=== PATIENT | female | born 1995 | race Two or more races ===

== ENCOUNTER 2021-07-03 14:24 | Emergency (ER) | payer SELFPAY ==
[2021-07-03 14:28] VITALS: BP 119/80; PULSE 83; RESP 18; TEMP 36.3; O2SAT 100
--- NOTE | 2021-07-03 15:31 | PC.NURSE ---
Pt to the intake desk and states she doesn't want to wait any longer and will try again tomorrow
== END 2021-07-04 05:13 | disposition left against medical advice (07) ==
LOC: ANHED 15:59
DX: G35 Multiple sclerosis (principal)
CPT/HCPCS: 99199

== ENCOUNTER 2021-07-04 09:51 | Emergency (ER) | payer SELFPAY ==
[2021-07-04 09:54] VITALS: BP 105/70; PULSE 87; RESP 16; TEMP 37.1; O2SAT 100
== END 2021-07-05 00:17 | disposition left against medical advice (07) ==
DX: Z53.21 Procedure and treatment not carried out due to patient leaving prior to being seen by health care provider (principal)
CPT/HCPCS: 99199

== ENCOUNTER 2023-05-12 12:41 | Emergency (ER) | payer OTHER, SELFPAY ==
--- NOTE | ~2023-05-12 | XR_ITS ---
EXAMINATION: XR humerus RT INDICATION: Right arm pain TECHNIQUE: Two views of the right humerus are obtained. COMPARISON: None available FINDINGS: No fracture, dislocation, or subluxation. The bones, soft tissues, and joint spaces are nor mal. IMPRESSION: 1. No acute osseous abnormality. Reviewed, dictated and finalized at location F.
--- NOTE | 2023-05-12 12:52 | ED.UPPEXIN ---
HPI - Extremity Injury (Upper) General Chief Complaint: Extremity Injury, Upper Stated Complaint: R SHOULDER PAIN Source: patient and RN notes reviewed History of Present Illness HPI narrative: 27 yo F with hx of MS, presents to urgent care with complaints of right mid humerus pain. Pt states she was cleaning out her garage today and her pain started. Pt denies any known injury today but states she is unable to move her right arm due to pain. Denies any numbness, tingling, fevers, or chills. Pt has not taken anything for pain today. Related Data Home Medications Medication Instructions Recorded Confirmed duloxetine 30 mg capsule,delayed 30 mg PO DIRECTED 05/12/23 05/12/23 release rizatriptan 10 mg tablet 10 mg PO DIRECTED 05/12/23 05/12/23 Allergies Allergy/AdvReac Type Severity Reaction Status Date / Time mint Allergy Other Verified 05/12/23 13:33 NKDA Allergy Other Uncoded 05/12/23 13:34 Review of Systems Review of Systems: CONSTITUTIONAL: Denies fever, chills, or sweats. EYES: Denies visual changes, redness, or discharge. ENT: Denies otalgia and sore throat CARDIOVASCULAR: Denies chest pain, palpitations, or edema. RESPIRATORY: Denies cough or dyspnea. GASTROINTESTINAL: Denies abdominal pain, nausea, vomiting, or diarrhea. GENITOURINARY: Denies dysuria or hematuria. SKIN: Denies rash or itching. MUSCULOSKELETAL: right upper arm pain NEUROLOGIC: Denies headache, numbness, or weakness. Pertinent positives per HPI. PMFSH Comments At the time of my signature, I reviewed and agree with the nursing past medical, surgical, social, and family history. There is no relevant family history pertinent to the patient complaint. Exam Narrative: GENERAL: This is a well-nourished, well-developed patient, in no apparent distress. HEAD: normocephalic, atraumatic. EYES: Sclera clear/white. Vision is grossly intact. EARS: External ears normal, auditory canals clear and without drainage. Hearing grossly intact. NOSE: External nose normal with no obvious nasal discharge, nares without redness, no rhinorrhea. THROAT: Mucous membranes moist, posterior pharynx clear. NECK: Neck supple, non-tender without lymphadenopathy, masses or thyromegaly. CARDIOVASCULAR: Regular rate RESPIRATORY: No respiratory distress SKIN: warm, intact with no suspicious lesions or rash, good texture and turgor. NEURO: awake, alert, and oriented to person, place and time. There were no obvious focal neurologic abnormalities. EXTREMITIES: No pinpont tenderness. Pt unable to abduct her right arm in any direction due to pain. BACK: Nontender without deformity or crepitus. No flank tenderness. Course Course Level of Care: Express Care Visit Vital Signs Vital signs: Vital Signs Temperature 98.2 F 05/12/23 12:55 Pulse Rate 76 05/12/23 12:55 Respiratory Rate 16 05/12/23 12:55 Blood Pressure 105/71 05/12/23 12:55 Pulse Oximetry 100 05/12/23 12:55 Temperature 98.2 F 05/12/23 12:55 Pulse Rate 76 05/12/23 12:55 Respiratory Rate 16 05/12/23 12:55 Blood Pressure 105/71 05/12/23 12:55 Pulse Oximetry 100 05/12/23 12:55 reviewed MDM - Extremity Injury (Upper) MDM Narrative Medical decision making narrative: Use the RICE method at home. May take ibuprofen and/or Tylenol if needed. If symptoms persist in 1 week after conservative treatment, follow-up with specialist. Differential Diagnosis Differential diagnosis: Likely other (humerus fx, arm strain, shoulder sprain) Imaging Data Radiologist's impression: [facility] [address] [place] [address] XRay Report Signed Patient: Kendra Vivas I : 1995 MR#: [id number] Age/Sex: 27 / F Acct:[id number] Loc: [facility]? ? ADM Date: 05/12/23Attending Dr: Ordering Physician: Mariam Rodriguez APRN Date of Service: 05/12/23 Procedure(s): XR humerus RT Accession Number(s): I
[2023-05-12 12:55] VITALS: BP 105/71; PULSE 76; RESP 16; TEMP 36.8; O2SAT 100
== END 2023-05-12 13:38 | disposition home or self-care (01) ==
PROVIDERS: Emergency Provider Nurse Practitioner Family
DX: S46.911A Strain of unspecified muscle, fascia and tendon at shoulder and upper arm level, right arm, initial encounter (principal); X58.XXXA Exposure to other specified factors, initial encounter
CPT/HCPCS: 73060; 99213; A4565; G0463

== ENCOUNTER 2023-06-03 10:59 | Emergency (ER) | payer OTHER, SELFPAY ==
[2023-06-03 11:24] VITALS: BP 109/77; PULSE 96; RESP 16; TEMP 37.1; O2SAT 100
--- NOTE | 2023-06-03 11:35 | ED.URI ---
HPI - URI/Sore Throat General Chief Complaint: Upper Respiratory Infection Stated Complaint: Sinus Infection Time Seen by Provider: 06/03/23 11:35 Source: patient, RN notes reviewed and old records reviewed Mode of arrival: ambulatory Limitations: no limitations History of Present Illness HPI Narrative: 27-year-old female presents to [facility] with complaints of sinus congestion, sinus tenderness, runny nose, and headache that started Sunday. Patient states he has been taking [id number] medications with little to no relief. Patient states has is taking 3 COVID test in last 5 days that were negative. Related Data Home Medications Medication Instructions Recorded Confirmed duloxetine 30 mg capsule,delayed 30 mg PO DIRECTED 05/12/23 06/03/23 release rizatriptan 10 mg tablet 10 mg PO DIRECTED 05/12/23 06/03/23 Allergies Allergy/AdvReac Type Severity Reaction Status Date / Time mint Allergy Other Verified 05/12/23 13:33 Review of Systems Constitutional: Constitutional: Reports no additional constitutional complaints, Denies body ache(s), Denies chills, Denies fatigue, Denies fever(s) and Denies malaise Eyes: Eyes: Reports no additional eye complaints ENT: Reports as per HPI, Reports facial pain, Reports headache(s), Reports nasal congestion, Reports nasal discharge, Reports post nasal drip and Reports sinus pressure Cardiovascular: Cardiovascular: Reports no additional cardiovascular complaints Respiratory: Respiratory: Reports no additional respiratory complaints, Denies chest congestion and Denies cough Neurologic: Reports system reviewed and no additional complaints, except as documented PMFSH Comments At the time of my signature, I reviewed and agree with the nursing past medical, surgical, social, and family history. There is no relevant family history pertinent to the patient complaint. Exam Const: General: cooperative, healthy appearing, no acute distress and well nourished Nutritional Appearance: well nourished Orientation/consciousness: patient oriented x3 Limitations: no limitations HENMT: Head: normal to inspection and normocephalic Ears: external ears normal, TM's normal bilaterally, mastoids normal and Abnormal EAC present Face/Nose/Sinus: Normal external nose present and normal facial exam Face and sinus: normal facial exam and sinuses nontender Mouth: Yes Normal oral and palatal mucosa present, Yes oropharynx normal and Yes moist mucous membranes Throat: posterior oropharynx normal, tonsils normal, uvula midline and no uvular edema Eyes: General: appearance normal, both eyes and all related structures Sclera: sclerae normal Pupils: Equal, round and reactive pupils present Resp: Effort & Inspection: normal respiratory effort, able to speak in complete sentences, no audible wheezes, no cough, no respiratory distress and no retractions Auscultation: clear to auscultation bilaterally, no crackles, no rales, no rhonchi and no wheezes Cardio: Rate: regular rate Rhythm: regular rhythm Skin: General skin exam: normal color and no rashes or lesions noted Neuro: General: patient oriented x3 Cranial nerves: Yes Equal, round and reactive pupils present Psych: Appearance: grossly normal Course Course Emergency Course: Some parts of this dictation were generated by voice recognition software and may contain typographical and/or grammatical inaccuracies. Level of Care: Express Care Visit Vital Signs Vital signs: Vital Signs Temperature 98.8 F 06/03/23 11:24 Pulse Rate 96 06/03/23 11:24 Respiratory Rate 16 06/03/23 11:24 Blood Pressure 109/77 06/03/23 11:24 Pulse Oximetry 100 06/03/23 11:24 Temperature 98.8 F 06/03/23 11:24 Pulse Rate 96 06/03/23 11:24 Respiratory Rate 16 06/03/23 11:24 Blood Pressure 109/77 06/03/23 11:24 Pulse Oximetry 100 06/03/23 11:24 Reviewed MDM - URI/Sore Throat MDM Narrative Medical decision making narra
== END 2023-06-03 11:58 | disposition home or self-care (01) ==
PROVIDERS: Emergency Provider Registered Nurse
DX: J01.00 Acute maxillary sinusitis, unspecified (principal)
CPT/HCPCS: 99211; G0463

== ENCOUNTER 2023-08-23 20:07 | Emergency (ER) | payer OTHER, SELFPAY ==
--- NOTE | ~2023-08-23 | US_ITS ---
EXAMINATION: US pelvic complete w TV DATE: 08/23/2023 23:04 INDICATION: Right lower abdominal pain and vaginal bleeding. TECHNIQUE: Multiple transabdominal and endovaginal sonographic images of the pelvis were obtained. COMPARISON: None. FINDINGS: The uterus measures 7.2 x 4.5 x 5.5 cm. The endometrial complex measures 6-7 mm in thickness. There is a T-shaped linear echogenic and shadowing IUD in expected position within the endometrial canal. T he right ovary measures 4.0 x 2.5 x 3.0 cm. The left ovary measures 3.9 x 2.2 x 3.5 cm. There is norm al vascular flow in the ovaries. There is no free fluid in the pelvis. IMPRESSION: 1. Normal pelvic ultrasound with IUD in expected position within the endometrial canal. Reviewed, dictated and finalized at location A. ANESTHESIA NURSE IMPRESSION: 1. Normal pelvic ultrasound with IUD in expected position within the endometria l canal.
[2023-08-23 20:09] VITALS: BP 117/68; PULSE 81; RESP 16; TEMP 36.6; O2SAT 100
[2023-08-23 22:33] LABS: Basophils Percent Auto 0.5 % (0.2-1.2); Eosinophils Absolute Auto 0.1 K/mm3 (0-0.3); Eosinophils Percent Auto 0.8 % (0-4.4); Hematocrit 35.1 % (37.0-47.0); Hemoglobin 12.2 g/dL (12.0-15.0); Immature Granulocyte Absolute 0.02 K/mm3 (0.00-0.031); Immature Granulocyte Percent A 0.2 % (0-0.5); Lymphocytes Absolute Auto 2.65 K/mm3 (0.9-3.2); Mean Corpuscular HGB Conc 34.8 g/dl (32-36); Mean Corpuscular Hemoglobin 29.9 pg (26-34); Mean Platelet Volume 10.1 fl (7.4-10.4); Monocytes Absolute Auto 0.6 K/mm3 (0.1-0.6); Monocytes Percent Auto 6.6 % (2.6-8.5); Neutrophils Percent Auto 59.9 % (45.5-73.1); Platelet Count Result 248 k/mm3 (150-375); Red Blood Count 4.08 M/mm3 (4.2-5.4); Red Cell Distribution Width 11.3 % (11.5-14.5); White Blood Count 8.3 K/mm3 (4.5-10.0)
--- NOTE | 2023-08-23 22:34 | ED.GENADULT ---
HPI - General Adult General Chief complaint: Abdominal Pain Stated complaint: abd pain, vaginal bleeding Time Seen by Provider: 08/23/23 21:59 Source: patient Mode of arrival: ambulatory Limitations: no limitations History of Present Illness HPI narrative: This is a 27-year-old female who presents to the ED with chief complaint lower abdominal pain x 3 days. Patient reports heavy vaginal bleeding going through 5 pads today which is very abnormal for her. She reports history of IUD in place x4 years and does not normally have periods. Reports pain is across the lower abdomen and worse whenever she sits up. Reports nausea and a couple episodes of vomiting. Denies fevers, chills, diarrhea, urinary symptoms. Denies vaginal discharge or concern for STD Related Data Home Medications Medication Instructions Recorded Confirmed duloxetine 30 mg capsule,delayed 30 mg PO DIRECTED 05/12/23 06/03/23 release rizatriptan 10 mg tablet 10 mg PO DIRECTED 05/12/23 06/03/23 Allergies Allergy/AdvReac Type Severity Reaction Status Date / Time mint Allergy Other Verified 08/23/23 23:14 Review of Systems Review of Systems: All systems as dictated in HPI Exam Narrative: GENERAL: Well-appearing, well-nourished, and in no acute distress. HEAD: Normocephalic, atraumatic. EYES: PERRLA and EOMI. ENT: Nares clear, no rhinorrhea or epistaxis. Mucous membranes moist. Oropharynx without tonsillar hypertrophy exudate or other lesions. NECK: Supple. No adenopathy or masses. CHEST: No respiratory distress. Clear to auscultation. No wheezes rales or rhonchi HEART: Regular rate and rhythm. No murmur heard. Normal peripheral pulses. ABDOMEN: Moderate tenderness to the right lower quadrant. Soft, otherwise nontender, nondistended, normal active bowel sounds. Negative peritoneal signs MSK: Normal range of motion. No edema. SKIN: Warm, dry, no rash. NEURO: Alert and oriented x3. No focal deficits. PSYCH: Normal mood and affect. Course Vital Signs Vital signs: Vital Signs Temperature 97.9 F 08/23/23 20:09 Pulse Rate 81 08/23/23 20:09 Respiratory Rate 16 08/23/23 20:09 Blood Pressure 117/68 08/23/23 20:09 Pulse Oximetry 100 08/23/23 20:09 Oxygen Delivery Room Air 02/15/24 20:09 Temperature 97.9 F 08/23/23 20:09 Pulse Rate 69 08/24/23 00:44 Respiratory Rate 14 08/24/23 00:44 Blood Pressure 99/68 L 08/24/23 00:44 Pulse Oximetry 100 08/24/23 00:44 Oxygen Delivery Room Air 08/23/23 20:09 Medical Decision Making MDM Narrative Medical decision making narrative: This is a 27-year-old female who presents to the ED with chief complaint of lower abdominal pain and vaginal bleeding. IUD placed several years ago and patient has not had a period since then. Vitals are normal. Exam remarkable for the above. Lab work shows normal white blood cells and normal hemoglobin. CMP unremarkable. Urinalysis unremarkable. Ultrasound pelvic: 1. Normal pelvic ultrasound with IUD in expected position within the endometrial canal. . She was given fluids and Toradol here with great improvement. Discussed with patient that this could represent abnormal uterine bleeding with many potential causes. We discussed that she should follow-up closely with gynecology. Referral given today. Toradol prescription given. Pt will be discharged in stable condition. Return precautions given and supportive measures discussed. Pt is understanding and agreeable with plan for discharge and follow-up with PCP. Vital Signs Vital Signs: Vital Signs Temperature 97.9 F 08/23/23 20:09 Pulse Rate 81 08/23/23 20:09 Respiratory Rate 16 08/23/23 20:09 Blood Pressure 117/68 08/23/23 20:09 Pulse Oximetry 100 08/23/23 20:09 Oxygen Delivery Room Air 08/23/23 20:09 Temperature 97.9 F 08/23/23 20:09 Pulse Rate 69 08/24/23 00:44 Respiratory Rate 14 08/24/23 00:44 Blood Pressure 99/68 L
[2023-08-23 22:43] LABS: Partial Thromboplastin Time 26.5 SECONDS (22.3-36.8); Prothrombin Time 14.1 Seconds (11.1-14.7)
[2023-08-23 22:50] LABS: Alanine Aminotransferase 12 U/L (6-35); Albumin Level 3.9 g/dL (3.5-5.1); Alkaline Phosphatase 63 U/L (38-126); Anion Gap 6 mmol/L (8-16); Aspartate Amino Transferase 26 U/L (14-36); Bilirubin,Total 0.6 mg/dL (0.2-1.3); Blood Urea Nitrogen 7 mg/dL (7-17); Carbon Dioxide 25 mmol/L (22-30); Chloride 107 mmol/L (98-107); Estimated CRCL calculation 131 ml/min; Estimated Glomerular Filt Rate > 60; Glucose 103 mg/dL (65-110); Sodium 138 mmol/L (137-145)
--- NOTE | 2023-08-23 22:57 | PC.NURSE ---
Patient states bleeding has resolved.
[2023-08-23] MEDS: SODIUM CHLORIDE 0.9% IV 1,000 ML 999 ML IV CONT (23:15)
[2023-08-23] MEDS: ONDANSETRON INJ 4 MG/2 ML VIAL IV PUSH (23:15)
[2023-08-23] MEDS: KETOROLAC 15 MG/ML VIAL (*BKC) IV PUSH (23:15)
[2023-08-24 00:01] LABS: Appearance Urine Clear (Clear); Bilirubin Urine Negative (Negative); Blood Urine Negative (Negative); Color Urine Yellow (Yellow); Glucose Urine UA Negative (Negative); Ketones Urine Negative (Negative); Leukocyte Esterase Ur Negative LEU/UL (Negative); Nitrate Urine Negative (Negative); Protein Urine Negative (Negative); Specific Grav Ur 1.007 (1.001-1.035); Urobilinogen Urine 0.2 mg/dL (<2.0)
[2023-08-24 00:04] LABS: Add Urine Microscopic? NO
[2023-08-24 00:11] LABS: Pregnancy On Board Control Positive; Urine Pregnancy Test Negative
--- NOTE | 2023-08-24 00:43 | PC.NURSE ---
Pt states she does not want to wait until IV bag is finished.
[2023-08-24 00:44] VITALS: BP 99/68; PULSE 69; RESP 14; O2SAT 100
== END 2023-08-24 00:45 | disposition home or self-care (01) ==
PROVIDERS: Student in an Organized Health Care Education/Training Program; Emergency Provider Physician Assistant
DX: R10.30 Lower abdominal pain, unspecified (principal); N93.9 Abnormal uterine and vaginal bleeding, unspecified; Z97.5 Presence of (intrauterine) contraceptive device
CPT/HCPCS: 36415; 76830; 76856; 80053; 81003; 81025; 83735; 85025; 85610; 85730; 96361; 96374; 96375; 99284; J1885; J2405; J7030

== ENCOUNTER 2023-09-11 08:54 | Outpatient (CLI) | payer OTHER, SELFPAY | END 2023-09-11 08:55 | disposition home or self-care (01) | LOC: ANHSURGERY 08:58 | PROVIDERS: Visit Provider Obstetrics & Gynecology | DX: Z01.818 Encounter for other preprocedural examination (principal) | CPT/HCPCS: 36415; 86850; 86900; 86901 ==

== ENCOUNTER 2023-09-14 01:35 | Day surgery (SDC) | payer OTHER, SELFPAY ==
--- NOTE | 2023-09-07 14:47 | PC.NURSE ---
Report to the Outpatient Waiting Room, entrance under the green pavilion located off [facility], at time _0600__ on date _09/14/23__. Planned Procedure Time: _0730___. Time changes happen often and if your time is changed the preop area will call you the afternoon before. - You and your visitor will be asked to self-screen and do not enter if you have any COVID symptoms. - A mask is optional within the hospital at this time. Patients may have clear liquids (water, carbonated beverages, clear teas, apple juice) until 3 hours prior to surgery with a maximum of 20 ounces. - No food from midnight until time of surgery - Infants may have breast milk until 4 hours before surgery, infant formula 6 hours prior to surgery. - Children will be allowed to drink immediately following surgery. If applicable, please bring a bottle or sippy cup to assist with drinking. Juice, water, soda, and popsicles are readily available. For infants on formula, please bring formula the day of surgery. Pacifiers are allowed. Take the following medications with a SIP of water the morning of surgery: __None__ DO NOT STOP ANY OF YOUR OTHER PRESCRIPTION MEDICATIONS PRIOR TO SURGERY ?EXCEPT THE FOLLOWING Medications to discontinue per physician ____Vitamins or supplements____ Date to take last dose Please no make-up, nail chinese, hairspray, perfume, deodorant, or body powder the day of surgery. No jewelry (including any body piercings) or valuables the day of surgery, leave them at home. Please take a shower or bath the night before, or the morning of, surgery with an antibacterial soap. Wear comfortable, loose fitting clothing. Children are encouraged to wear pajamas. - Jewelry must be removed prior to entering the operating room. Rings and piercings that are not removed may be cut off. - The hospital will not accept responsibility for valuables. - Please leave all valuables, including medications, at home the day of surgery. If you are going home after surgery, a licensed pick up truck driver must drive you home. - NO public transportation without another adult if you receive anesthesia. - We recommend that an adult stay with you for 24 hours following discharge. - We also recommend that you do not drive, make important decision, drink alcoholic beverages, or take any drugs that were not prescribed by your health care provider for at least 24 hours after your discharge time. For Pediatric surgeries, we recommend two adults accompany the child home. Follow any additional instructions given to you from your surgeon. If you or anyone in your household have experienced Covid symptoms in the past week, please notify your surgeon or the nurse liaison at the phone number below for possible testing. Telephone instructions given to _Patient__and asked if any additional questions and then verbalized understanding. Patient advised to call surgeon office or pre surgery nurse liaison [phone] if any additional questions.
[2023-09-07 14:54] VITALS: BMI 23.5
--- NOTE | 2023-09-13 06:38 | PM.IMHP ---
H&P: HPI History of Present Illness Date/Time: 09/13/23 06:38 Chief Complaint: pelvic pain Narrative: 28-year-old female admitted for laparoscopy secondary to pelvic pain. Was seen in the ER severe dyspareunia dysmenorrhea. IUD is she has strong history cancers. Cyst imaging was negative. Risks and benefits of laparoscopy reviewed including exclusive , aspiration wound, bleeding, transfusion, perforation injury to bowel, bladder, ureter, or other internal organs with need for laparotomy. She received the [employer] handout entitled laparoscopy. Had all questions answered. She asked to proceed [facility] Social History Social History Smoking status: Never smoker Alcohol intake: current Drinks per week: 1 Alcohol use details: 1 drink every two weeks Substance use: current Substance use type: opiates Other substance usage details: Pt stated after surgery when she was 17 Last use: 10 years Living arrangements: with family Spiritual care concerns: No Meds Home Medications and Allergies Home Medications Medication Instructions Recorded Confirmed Type duloxetine 30 mg capsule,delayed 30 mg PO DIRECTED 05/12/23 09/07/23 History release rizatriptan 10 mg tablet 10 mg PO DIRECTED 05/12/23 09/07/23 History Allergies Allergy/AdvReac Type Severity Reaction Status Date / Time mint Allergy Severe Difficulty Verified 09/07/23 14:28 Breathing Ringer's solution,lactated Allergy Severe Difficulty Verified 09/07/23 15:01 Breathing Exam Const: General: cooperative, healthy appearing and comfortable Nutritional Appearance: average body habitus Orientation/consciousness: oriented to person, oriented to place and oriented to time HENMT: Head: normal to inspection Resp: Effort & Inspection: normal respiratory effort Cardio: Rate: regular rate Rhythm: regular rhythm Heart sounds: S1 normal heart sound present and S2 normal heart sound present GI: Inspection: normal to inspection : External Female Exam: normal external appearance Speculum Exam - Vagina: normal appearance of the vagina Speculum Exam - Cervix: normal appearance of the cervix Bimanual exam- vagina & uterus: uterine size normal and Uterine tenderness Bimanual Exam- Adnexa, other: tender bilaterally Assessment and Plan Assessment and plan (1) Pelvic pain: Code(s): R10.2 - Pelvic and perineal pain Status: Acute Plan diagnostic laparoscopy
--- NOTE | 2023-09-13 12:31 | P.PNAN_ITS ---
Anes - Initial Pre Proc Eval Procedure: Operation Date: 09/14/23 07:30 Proposed Procedures p Diagnostic Laparoscopy - Vincent Akins MD Date/Time: 09/13/23 12:31 Surgeon: Vincent Akins MD Pre Op Diagnosis: pelvic pain, irregular excessive bleeding, Patient Data Age: 28 Gender: F Height: 1.7 m Weight: 68.18 kg Allergies Allergy/AdvReac Type Severity Reaction Status Date / Time mint Allergy Severe Difficulty Verified 09/07/23 14:28 Breathing Ringer's solution,lactated Allergy Severe Difficulty Verified 09/07/23 15:01 Breathing Home Medications Medication Instructions Recorded Confirmed Type duloxetine 30 mg capsule,delayed 30 mg PO DIRECTED 05/12/23 09/07/23 History release rizatriptan 10 mg tablet 10 mg PO DIRECTED 05/12/23 09/07/23 History hydrocodone 5 mg-acetaminophen 325 1 tablet PO Q4H PRN pain #20 tabs 09/14/23 Rx mg tablet Patient hx anesthesia problems: none Family hx anesthesia problems: none Results Review: All pre-operative results and documents have been reviewed as part of the pre- operative evaluation. [facility] Past Medical History Medical History (Updated 09/13/23 @ 12:31 by Hoang Olsen DO) ADHD Multiple sclerosis Social History Social History Smoking status: Never smoker Alcohol intake: current Drinks per week: 1 Alcohol use details: 1 drink every two weeks Substance use: current Substance use type: opiates Other substance usage details: Pt stated after surgery when she was 17 Last use: 10 years Living arrangements: with family Spiritual care concerns: No Anes - Eval Final PreProcedure Day of Procedure 09/13/23 12:31 Patient weight: normal Heart: regular rate and rhythm Lungs: clear to auscultation Airway: Mallampati scale class II Neurological: alert and oriented Last oral intake: >/= 8 hours ASA classification: II Emergent: no Anesthetic plan: proceed Anesthesia type and monitoring: general ETT and standard monitoring Results Review: All pre-operative results and documents have been reviewed as part of the pre- operative evaluation. Informed Consent: The patient's anesthetic plan and its attendant risks and benefits were discussed with the patient/family/POA. Questions were solicited and answers provided to the satisfaction of the patient/family/POA.
[2023-09-14] VITALS (16 sets, daily range): BP systolic 89–120; BP diastolic 51–81; PULSE 57–90; RESP 12–16; TEMP 35.8–36.4; O2SAT 96–100
--- NOTE | 2023-09-14 05:47 | WPDHPUPDATE1 ---
History and Physical Update Update Date/Time: 09/14/23 05:47 History and Physical has been reviewed, including an updated exam of the patient. There are NO changes in the patient's condition. Risks, benefits, and alternatives have been discussed and questions answered. Patient agrees to proceed with procedure.
[2023-09-14] MEDS: SODIUM CHLORIDE 0.9% IV 1,000 ML 30 ML IV CONT ×2 (07:15→09:28)
[2023-09-14] MEDS: KETOROLAC 15 MG/ML VIAL (*BKC) IV PUSH ×2 (07:15→09:52)
--- NOTE | 2023-09-14 07:59 | P.OP_ITS ---
Procedure Note - Detailed Date of Procedure 09/14/23 Pre-op Diagnosis pelvic pain, irregular excessive bleeding, Post-op Diagnosis Other (Pelvic pain/ endometriosis) Procedure Performed laparoscopy with destruction of endometriosis Surgeon Vincent Akins MD Anesthesia General Indications 27-year-old female with pelvic pain suspected endometriosis Findings endometriosis in the cul-de-sac. Normal-appearing ovaries with a small area of endometriosis on the left ovary. Normal-appearing tubes uterus. Normal- appearing appendix and gallbladder and liver edge Description of Procedure patient was prepped draped sterile fashion placed the dorsal lithotomy position. A general trach anesthesia weighted speculum placed posterior fornix vagina. Anterior lip of the cervix grasped with single-tooth tenaculum. The David's cannula inserted the single-tooth to be used later for uterine manipulation. After emptying the bladder clear urine, the weighted speculum was removed the gloves were changed. Infraumbilical incision made the Veress needle passed in the abdomen. Abdomen filled with CO2 gas [id number]. The 5mm trocar advanced under direct visualization assuring no injury. Patient placed in Trendelenburg and a suprapubic incision made. The 5mm trocar advanced under direct visualization assuring no injury. The above findings were seen in photo documentation the areas of endometriosis along the right left uterosacral ligament cul-de-sac were all cauterized at 35 w per 2nd with excellent desiccation. Irrigation undertaken until clear. There was small area the left ovary of endometriosis and this was cauterized as well. Irrigation was then taken the clear the lower sites removed. The gas removed from the abdomen. The upper site removed. The incisions closed with 4 Monocryl and glue. Instruments removed from the vagina the patient went recovery in satisfactory condition. All sponge, needle, instrument counts were correct. There were no complications Estimated Blood Loss 5 Drains No Packing No Pathology None sent Condition Stable Disposition PACU
[2023-09-14] MEDS: fentaNYL CITRATE INJ (*CRX) 100 MCG/2 ML VIAL 25 MCG IV PUSH ×6 (09:11→09:30)
[2023-09-14] MEDS: HYDROmorphone HCL INJ (*CRX) 1 MG/ML SYR 0.5 MG IV PUSH ×2 (09:35→09:40)
[2023-09-14] MEDS: ONDANSETRON INJ 4 MG/2 ML VIAL IV PUSH (09:46)
[2023-09-14] MEDS: MIDAZOLAM HCL (*CRX) 2 MG/2 ML VIAL 1 MG IV PUSH (09:55)
[2023-09-14] MEDS: oxyCODONE HCL (*CRX) 5 MG TAB IR PO (11:33)
== END 2023-09-14 12:49 | disposition home or self-care (01) ==
PROVIDERS: Visit Provider Obstetrics & Gynecology
PROC: (CPT 49320; principal; 2023-09-14 07:30)
DX: N80.00 Endometriosis of the uterus, unspecified (principal); R10.2 Pelvic and perineal pain; N94.6 Dysmenorrhea, unspecified; N94.10 Unspecified dyspareunia
CPT/HCPCS: 58662; 36415; 86850; 86900; 86901; A9270; J1170; J1200; J1885; J2250; J2405; J2704; J3010; J7030; J7040

== ENCOUNTER 2023-09-18 09:01 | Emergency (ER) | payer OTHER, SELFPAY ==
--- NOTE | ~2023-09-18 | CT_ITS ---
EXAMINATION: CT abdomen pelvis w con DATE: 09/18/2023 10:37 INDICATION: Right upper quadrant abdominal and epigastric pain. Nausea. TECHNIQUE: Computed tomography (CT) of the abdomen and pelvis was performed with 100 mL Omnipaque-350 intravenous contrast. Automated exposure control and iterative reconstruction technique were employe d. The dose-length product was 414.09 mGy-cm. COMPARISON: None FINDINGS: Lung bases are clear. Heart size is normal. No pericardial or pleural effusion. Liver, gallbladder, s pleen, pancreas, bilateral adrenal glands and kidneys are normal. The bowels appear normal with no ob struction or abnormal bowel wall thickening. The appendix is not visualized. No pericecal inflammator y change to suggest acute appendicitis. Bladder is normal. T-shaped IUD in expected position within t he normal anteverted uterus. 2.0 cm left ovarian cyst/follicle. Right ovary is unremarkable. Minimal free fluid in the cul-de-sac which could be either physiologic or related to reported recent laparosc opic surgery. Also likely related to recent surgery is small amount of gas in the subcutaneous tissue s of the anterior pelvic wall and small amount of intraperitoneal gas scattered throughout the abdome n. No abscess. No pathologically enlarged abdominal or pelvic lymphadenopathy. Bones are unremarkable . IMPRESSION: 1. Small amount of free intraperitoneal gas likely related to recent laparoscopic surgery. No other a cute intra-abdominal/pelvic process. 2. IUD in expected position within the anteverted uterus. Reviewed, dictated and finalized at location L. IMPRESSION: 1. Small amount of free intraperitoneal gas likely related to recent laparoscop ic surgery. No other acute intra-abdominal/pelvic process. 2. IUD in expected position within the anteverted uterus.
--- NOTE | 2023-09-18 09:18 | ED.ABDPAIN ---
HPI - Abdominal Pain General Chief Complaint: Abdominal Pain Stated Complaint: endometriosis surgery sunday having pain Time Seen by Provider: 09/18/23 09:03 Source: patient and old records reviewed Mode of arrival: ambulatory Limitations: no limitations History of Present Illness HPI narrative: Patient is a 28-year-old female who presents the ED with report of right upper quadrant and epigastric abdominal pain. Patient reports she underwent laparoscopic surgery/endometrial ablation under Dr. Cinthya Akins on Sunday. She began having pain in her right upper abdomen after the surgery, which has progressively worsened since then. Pain radiates to her right clavicular region/right upper back. She reports decreased appetite, nausea. Denies vomiting, diarrhea, constipation. Last bowel movement today and was normal. Denies rectal bleeding or melena. Denies fevers. Denies urinary complaints. Patient has not tried anything for the pain. Denies previous issues with her pancreas or gallbladder. Related Data Home Medications Medication Instructions Recorded Confirmed duloxetine 30 mg capsule,delayed 30 mg PO DIRECTED 05/12/23 09/07/23 release rizatriptan 10 mg tablet 10 mg PO DIRECTED 05/12/23 09/07/23 Allergies Allergy/AdvReac Type Severity Reaction Status Date / Time mint Allergy Severe Difficulty Verified 09/14/23 07:52 Breathing Ringer's solution,lactated Allergy Severe Difficulty Verified 09/14/23 07:52 Breathing Review of Systems Review of Systems: CONSTITUTIONAL: Denies fever, chills, or sweats. GASTROINTESTINAL: See HPI. GENITOURINARY: Denies dysuria or hematuria. MUSCULOSKELETAL: See HPI. NEUROLOGIC: Denies headache, dizziness, numbness, or weakness. All systems reviewed & are unremarkable except as noted in HPI and below PMFSH Past Medical History Medical History (Updated 09/18/23 @ 11:23 by Gilda Newton PA-C) ADHD Endometriosis Multiple sclerosis Surgical History Surgical History (Updated 09/18/23 @ 11:23 by Gilda Newton PA-C) History of endometrial ablation Social History Social History Smoking status: Never smoker Alcohol intake: current Drinks per week: 1 Alcohol use details: 1 drink every two weeks Substance use: current Substance use type: opiates Other substance usage details: Pt stated after surgery when she was 17 Last use: 10 years Living arrangements: with family Spiritual care concerns: No Exam Narrative: GENERAL: Well appearing, well-nourished, non-toxic, in no acute distress. HEAD: Normocephalic, atraumatic. RESPIRATORY: Airway patent, respirations nonlabored. Clear to auscultation bilaterally, no rales, rhonchi, wheezing. CARDIOVASCULAR: Regular rate and rhythm ABDOMINAL: Soft, diffuse tenderness throughout abdomen, worst in epigastric and right upper quadrant. Normoactive BS. MUSCULOSKELETAL: Moves all extremities. No gross deformities. SKIN: Warm, dry, normal color. Small incisions to umbilical region and suprapubic region are clean dry and intact, glue in place, no evidence of dehiscence, no drainage or bleeding, minimal surrounding ecchymosis. NEURO: A&O X3. Speech clear. PSYCHIATRIC: Mildly anxious and tearful. Normal interaction. Course Vital Signs Vital signs: Vital Signs Pulse Rate 80 09/18/23 10:05 Respiratory Rate 12 09/18/23 10:05 Blood Pressure 105/71 09/18/23 10:05 Pulse Oximetry 100 09/18/23 10:05 Pulse Rate 65 09/18/23 11:31 Respiratory Rate 16 09/18/23 11:31 Blood Pressure 106/84 09/18/23 11:31 Pulse Oximetry 98 09/18/23 11:31 MDM - Abdominal Pain MDM Narrative Medical decision making narrative: Patient presented to ED with several day history of right upper quadrant/epigastric abdominal pain, recent endometrial ablation on Sunday. Vital signs are stable upon arrival. Afebrile. Patient mild
[2023-09-18 09:43] LABS: Basophils Percent Auto 0.4 % (0.2-1.2); Eosinophils Absolute Auto 0.1 K/mm3 (0-0.3); Eosinophils Percent Auto 0.8 % (0-4.4); Hematocrit 42.5 % (37.0-47.0); Hemoglobin 14.7 g/dL (12.0-15.0); Immature Granulocyte Absolute 0.02 K/mm3 (0.00-0.031); Immature Granulocyte Percent A 0.3 % (0-0.5); Lymphocytes Absolute Auto 1.99 K/mm3 (0.9-3.2); Mean Corpuscular HGB Conc 34.6 g/dl (32-36); Mean Corpuscular Hemoglobin 30.1 pg (26-34); Mean Corpuscular Volume 86.9 fl (80-100); Mean Platelet Volume 10.2 fl (7.4-10.4); Monocytes Absolute Auto 0.4 K/mm3 (0.1-0.6); Neutrophils Absolute Auto 4.8 K/mm3 (1.3-6.7); Neutrophils Percent Auto 65.5 % (45.5-73.1); Platelet Count Result 255 k/mm3 (150-375); Red Blood Count 4.89 M/mm3 (4.2-5.4); Red Cell Distribution Width 11.6 % (11.5-14.5); White Blood Count 7.4 K/mm3 (4.5-10.0)
[2023-09-18 09:54] LABS: Appearance Urine Cloudy (Clear); Bacteria Urine Rare /hpf; Bilirubin Urine Negative (Negative); Blood Urine Negative (Negative); Color Urine Yellow (Yellow); Glucose Urine UA Negative (Negative); Ketones Urine Negative (Negative); Leukocyte Esterase Ur 1+ LEU/UL (Negative); Nitrate Urine Negative (Negative); Non Pathogenic Casts 0-2; Protein Urine Negative (Negative); RBC Urine 0-2 /hpf (0-2); Specific Grav Ur 1.012 (1.001-1.035); Squamous Epithelial Cell Urine Moderate /hpf (Few); Urobilinogen Urine 0.2 mg/dL (<2.0)
[2023-09-18 10:03] LABS: Alanine Aminotransferase 16 U/L (6-35); Albumin Level 4.6 g/dL (3.5-5.1); Alkaline Phosphatase 86 U/L (38-126); Anion Gap 7 mmol/L (8-16); Aspartate Amino Transferase 28 U/L (14-36); Bilirubin,Total 0.7 mg/dL (0.2-1.3); Blood Urea Nitrogen 7 mg/dL (7-17); Calcium 9.6 mg/dL (8.4-10.2); Carbon Dioxide 27 mmol/L (22-30); Chloride 105 mmol/L (98-107); Estimated Glomerular Filt Rate > 60; Glucose 89 mg/dL (65-110); Lipase 128 U/L (23-300); Potassium 3.8 mmol/L (3.4-5.0); Sodium 139 mmol/L (137-145)
[2023-09-18 10:04] LABS: Add Urine Microscopic? YES
[2023-09-18 10:05] VITALS: BP 105/71; PULSE 80; RESP 12; O2SAT 100
[2023-09-18] MEDS: FAMOTIDINE 20 MG/2 ML VIAL IV PUSH (10:10)
[2023-09-18] MEDS: SODIUM CHLORIDE 0.9% IV 1,000 ML 999 ML IV CONT (10:11)
--- NOTE | 2023-09-18 10:26 | PC.NURSE ---
Waiting to give IV pain meds until after CT scan and reassess BP. Provider made aware.
[2023-09-18] MEDS: ONDANSETRON INJ 4 MG/2 ML VIAL IV PUSH (10:51)
[2023-09-18] MEDS: MORPHINE SULFATE (*CRX) 4 MG/ML INJ IV PUSH (10:51)
[2023-09-18 11:31] VITALS: BP 106/84; PULSE 65; RESP 16; O2SAT 98
--- NOTE | 2023-09-27 09:09 | PC.NURSE ---
Late Entry: Normal saline stopped at 11:12
== END 2023-09-18 11:32 | disposition home or self-care (01) ==
PROVIDERS: Emergency Provider Physician Assistant; Referring Provider Emergency Medicine
DX: R10.11 Right upper quadrant pain (principal); R11.0 Nausea; Z98.890 Other specified postprocedural states; G35 Multiple sclerosis; N80.9 Endometriosis, unspecified; F90.9 Attention-deficit hyperactivity disorder, unspecified type
CPT/HCPCS: 36415; 74177; 80053; 81001; 81025; 83690; 85025; 87086; 87088; 96361; 96374; 96375; 99284; J2270; J2405; J7030; Q9967

== ENCOUNTER 2024-02-22 08:14 | Emergency (ER) | payer OTHER, SELFPAY ==
--- NOTE | ~2024-02-22 | XR_ITS ---
EXAMINATION: XR chest 2V 02/22/2024 09:05 INDICATION: Cough for 5 days PROCEDURE: 2 view chest COMPARISON: No prior studies for comparison. FINDINGS: The lungs are clear. The cardiomediastinal silhouette is within normal limits. There are no pleural effusions. There is no pneumothorax suspected. IMPRESSION: 1: NO ACUTE CARDIOPULMONARY DISEASE. Reviewed, dictated and finalized at location B.
[2024-02-22 08:29] VITALS: BP 102/70; PULSE 86; RESP 16; TEMP 36.8; O2SAT 100
--- NOTE | 2024-02-22 09:18 | ED.URI ---
HPI - URI/Sore Throat General Chief Complaint: Upper Respiratory Infection Stated Complaint: COUGH/SOB/FEVER/BODY ACHES Time Seen by Provider: 02/22/24 08:50 Source: patient and RN notes reviewed Mode of arrival: ambulatory Limitations: no limitations History of Present Illness HPI Narrative: Patient presents today with a 5 day history of nasal congestion and sinus pressure, ear pain, chills, sweats, sore throat. Also states it is difficult to take a deep breath. She has been using DayQuil, Tylenol cold and flu without much relief. No history of asthma or COPD. She is a nonsmoker. History of multiple sclerosis for which she gets Ocrevus infusions. States her child was sick 2 weeks ago with rhino virus. Related Data Home Medications Medication Instructions Recorded Confirmed duloxetine 30 mg capsule,delayed 30 mg PO DIRECTED 05/12/23 09/07/23 release rizatriptan 10 mg tablet 10 mg PO DIRECTED 05/12/23 09/07/23 ocrelizumab 30 mg/mL intravenous mg IV 02/22/24 solution (Ocrevus) Allergies Allergy/AdvReac Type Severity Reaction Status Date / Time mint Allergy Severe Difficulty Verified 09/14/23 07:52 Breathing Ringer's solution,lactated Allergy Severe Difficulty Verified 09/14/23 07:52 Breathing Review of Systems Review of Systems: CONSTITUTIONAL: Denies body aches, fever. + chills, sweats EYES: Denies visual changes, redness, or discharge. ENT:+ ear pressure, congestion, sore throat CARDIOVASCULAR: Denies chest pain, palpitations, or edema. RESPIRATORY: Denies dyspnea.+ cough GASTROINTESTINAL: Denies abdominal pain, nausea, vomiting, or diarrhea. GENITOURINARY: Denies dysuria or hematuria. SKIN: Denies rash, itching, or wounds. MUSCULOSKELETAL: Denies back pain, joint pain, or myalgia. NEUROLOGIC: Denies headache, numbness, tingling, or weakness. PSYCH: Denies depression or anxiety. [facility] Past Medical History Medical History ADHD Endometriosis Multiple sclerosis Surgical History Surgical History History of endometrial ablation Social History Social History Smoking status: Never smoker Alcohol intake: current Drinks per week: 1 Alcohol use details: 1 drink every two weeks Substance use: current Substance use type: opiates Other substance usage details: Pt stated after surgery when she was 17 Last use: 10 years Living arrangements: with family Spiritual care concerns: No Comments At time of signature, I have reviewed and agree with nursing past medical, surgical, social and family history unless otherwise noted. Please see nursing chart for further information. There is no relevant family history pertinent to the presenting complaint Exam Narrative: GENERAL: Mildly ill-appearing, well-nourished, and in no acute distress. HEAD: Normocephalic, atraumatic. EYES: EOMI. No redness or drainage. Conjunctivae normal. ENT: Mucous membranes pink and moist. Nares congested. No rhinorrhea. TMs normal bilaterally. Throat normal. Uvula midline. NECK: Normal AROM. Supple. No lymphadenopathy. CHEST: No respiratory distress. Clear to auscultation. Harsh frequent cough noted. HEART: Regular rate and rhythm. No murmur appreciated. EXTREMITIES: Normal range of motion. No edema. SKIN: Warm, dry, no rash. Capillary refill normal. Normal skin turgor. NEURO: No focal deficits. Alert and oriented x3. Gait steady. PSYCH: Normal affect. No signs of depression or anxiety. Course Course Level of Care: Express Care Visit Vital Signs Vital signs: Vital Signs Temperature 98.2 F 02/22/24 08:29 Pulse Rate 86 02/22/24 08:29 Respiratory Rate 16 02/22/24 08:29 Blood Pressure 102/70 02/22/24 08:29 Pulse Oximetry 100 02/22/24 08:29 Temperature 98.2 F 02/22/24
== END 2024-02-22 09:30 | disposition home or self-care (01) ==
PROVIDERS: Emergency Provider Nurse Practitioner
DX: J06.9 Acute upper respiratory infection, unspecified (principal); J40 Bronchitis, not specified as acute or chronic; N80.9 Endometriosis, unspecified; G35 Multiple sclerosis
CPT/HCPCS: 71046; 99213; G0463

== ENCOUNTER 2024-02-24 08:04 | Emergency (ER) | payer OTHER, SELFPAY ==
--- NOTE | 2024-02-24 08:12 | ED.URI ---
HPI - URI/Sore Throat General Chief Complaint: Upper Respiratory Infection Stated Complaint: Bronchitis Time Seen by Provider: 02/24/24 08:19 Source: patient, RN notes reviewed and old records reviewed Mode of arrival: ambulatory Limitations: no limitations History of Present Illness HPI Narrative: 28 year female who presents to express care with continued feelings of acute cough, sore throat, nasal congestion, coughed so hard she wet herself. Patient was seen on Sunday with a 5 day history of symptoms and was placed on Augmentin, benzonatate, and prednisone daily for 5 days. Patient reports that she has taken cold and flu medication OTC and also some Advil and Tylenol for her discomfort along with her prescribed medication.. Patient reports that she is not feeling any better and is not sleeping due to the cough.Patient tearful,reports no fevers, chest x-ray negative on Sunday. MD elicited complaint: cough, sore throat, rhinorrhea and nasal congestion Pertinent past history: other (Ocrevus for MS) Onset (ago): week(s) (1) Consistency: constant Severity: moderate Description of mucous: clear Able to tolerate fluids by mouth: Yes Treatments prior to arrival: acetaminophen, ibuprofen, cold medicine , antibiotics and other (prednisone, benzonatate) Related Data Home Medications Medication Instructions Recorded Confirmed ocrelizumab 30 mg/mL intravenous 10 mg IV DIRECTED 02/22/24 02/24/24 solution (Ocrevus) Allergies Allergy/AdvReac Type Severity Reaction Status Date / Time mint Allergy Severe Difficulty Verified 02/24/24 08:28 Breathing Ringer's solution,lactated Allergy Severe Difficulty Verified 02/24/24 08:28 Breathing Review of Systems Review of Systems: CONSTITUTIONAL: Reports malaise, chills, sweats, no known fever. EYES: Denies visual changes, redness, or discharge. ENT: Reports rhinorrhea, congestion, sinus pain, no otalgia and positive sore throat. CARDIOVASCULAR: Denies chest pain, palpitations, or edema. RESPIRATORY: Reports cough.? Denies dyspnea. GASTROINTESTINAL: Denies abdominal pain, nausea, vomiting, diarrhea SKIN: Denies rash or itching. MUSCULOSKELETAL: Denies myalgia. NEUROLOGIC: Denies headache. All systems reviewed & are unremarkable except as noted in HPI and below PMFSH Past Medical History Medical History (Updated 02/25/24 @ 00:00 by Background Daemon) ADHD Endometriosis Multiple sclerosis Surgical History Surgical History (Updated 02/25/24 @ 09:21 by Rakel Gates NP) History of endometrial ablation History of hip surgery Social History Social History (Updated 02/25/24 @ 09:21 by Rakel Gates NP) Smoking status: Never smoker Alcohol intake: current Drinks per week: 1 Alcohol use details: 1 drink every two weeks Substance use: former Substance use type: opiates Other substance usage details: Pt stated after surgery when she was 17 Last use: 10 years Living arrangements: with family Gender identity (if verbalized by the patient): Female Spiritual care concerns: No Comments At time of signature, agree with nursing past medical, surgical, social and family history. There is no relevant family history pertinent to the presenting complaint Exam Narrative: GENERAL: Well-appearing, well-nourished, and in no acute distress. HEAD: Normocephalic EYES: PERRLA, conjunctivae clear ENT: Nares clear, turbinates edematous and erythematous, clear discharge. Mucous membranes moist. TM pearly lomeli with dull light reflex bilaterally; no tragal tenderness. Oropharynx erythematous without lesions. Tonsils not enlarged and without exudate, no drooling, no hoarseness, no trismus, uvula midline.post nasal drainage NECK: Supple. No lymphadenopathy CHEST: Clear to auscultation, breath sounds equal. No wheezing, rhonchi, rales, or stridor. No respiratory distress, speaks in full sentences.cough noted SAO2 100% on room air,dry co
[2024-02-24 08:15] VITALS: BP 110/84; PULSE 84; RESP 16; TEMP 36.9; O2SAT 100
== END 2024-02-24 08:38 | disposition home or self-care (01) ==
PROVIDERS: Emergency Provider Registered Nurse
DX: R05.1 Acute cough (principal); R09.81 Nasal congestion; N80.9 Endometriosis, unspecified; G35 Multiple sclerosis
CPT/HCPCS: 99213; G0463

== ENCOUNTER 2024-03-05 09:18 | Emergency (ER) | payer OTHER, SELFPAY ==
[2024-03-05 09:33] VITALS: BP 109/78; PULSE 106; RESP 16; TEMP 36.9; O2SAT 100
--- NOTE | 2024-03-05 09:34 | ED.GENADULT ---
HPI - General Adult General Chief complaint: Skin/Abscess/Foreign Body Stated complaint: LICE CHECK Time Seen by Provider: 03/05/24 09:35 Source: patient, RN notes reviewed and old records reviewed Mode of arrival: ambulatory Limitations: no limitations History of Present Illness HPI narrative: 27 year old female accompanied by spouse presents to express care and reports that they need to have examination for pubic lice for DCFS. Patient reports that their daughter was treated for head last week last week and they noted that daughters eye lashes and eye brows had white crusting so they took child to pit clerk on Sunday. Child was very anxious and pit clerk told them it was public lice and on child's eyelashes and eye brows and ophthalmology was unable to remove and recommended they go to [facility] so child could be sedated and have them removed. Mother reports that they went to [facility] and child was given Ketamine and computer equipment repairer removed lice from eyes and they are to follow up next week with computer equipment repairer at [facility]. MD complaint: here for examination for pubic lice Onset (ago): day(s) (2-3 days) Treatments prior to arrival: none Related Data Home Medications Medication Instructions Recorded Confirmed fexofenadine 60 mg tablet (Brina 60 mg PO DAILY 03/05/24 03/05/24 Allergy) Allergies Allergy/AdvReac Type Severity Reaction Status Date / Time mint Allergy Severe Difficulty Verified 03/05/24 09:27 Breathing Ringer's solution,lactated Allergy Severe Difficulty Verified 03/05/24 09:27 Breathing Review of Systems Review of Systems: CONSTITUTIONAL: Denies fever, chills, or sweats. EYES: Denies visual changes, redness, or discharge. ENT: Denies rhinorrhea, congestion, sore throat, or otalgia. CARDIOVASCULAR: Denies chest pain, palpitations, or edema. RESPIRATORY: Denies cough or dyspnea. GASTROINTESTINAL: Denies abdominal pain, nausea, vomiting, or diarrhea. GENITOURINARY: Denies dysuria or hematuria. SKIN: Denies rash or itching.denies any lice to hair or to eyes or to pubic area MUSCULOSKELETAL: Denies back pain, joint pain, or myalgia. NEUROLOGIC: Denies headache, numbness, or weakness. PSYCHIATRIC: Denies anxiety or depression. All systems reviewed & are unremarkable except as noted in HPI and below PMFSH Past Medical History Medical History ADHD Endometriosis Multiple sclerosis Surgical History Surgical History History of endometrial ablation History of hip surgery Social History Social History Smoking status: Never smoker Alcohol intake: current Drinks per week: 1 Alcohol use details: 1 drink every two weeks Substance use: former Substance use type: opiates Other substance usage details: Pt stated after surgery when she was 17 Last use: 10 years Living arrangements: with family Gender identity (if verbalized by the patient): Female Spiritual care concerns: No Comments At time of signature, agree with nursing past medical, surgical, social and family history. There is no relevant family history pertinent to the presenting complaint Exam Narrative: GENERAL: Well-appearing, well-nourished, and in no acute distress. HEAD: Normocephalic, atraumatic. EYES: PERRLA and EOMI. ENT: Nares clear, no rhinorrhea or epistaxis. Mucous membranes moist. NECK: Supple. no lymphadenopathy CHEST: Clear to auscultation. No respiratory distress.SAO2 100% on room air HEART: Regular rate and rhythm. No murmur heard. Normal peripheral pulses. ABDOMEN: Soft, nontender, nondistended, normal active bowel sounds. EXTREMITIES: Normal range of motion. No edema. SKIN: Warm, dry, no rash. Examination with senior java developer present using oshea lamp with no pubic lice noted on examination NEURO: No focal def
== END 2024-03-05 10:08 | disposition home or self-care (01) ==
PROVIDERS: Emergency Provider Registered Nurse
DX: Z04.89 Encounter for examination and observation for other specified reasons (principal); N80.9 Endometriosis, unspecified; G35 Multiple sclerosis
CPT/HCPCS: 99211; G0463

== ENCOUNTER 2024-03-12 17:59 | Emergency (ER) | payer OTHER, SELFPAY ==
--- NOTE | 2024-03-12 18:00 | ED.EAR ---
HPI - Ear Problem General Chief complaint: Ear Stated complaint: EARACHE Time Seen by Provider: 03/12/24 17:59 Source: patient Mode of arrival: ambulatory Limitations: no limitations History of Present Illness HPI Narrative: Marzena is a 28-year-old female patient presenting to the clinic today with complaints of an left-sided earache x1 day. She reports is painful to chew, swallow, yawn, or even talk. She is concerned that she may have an ear infection. Denies any recent swimming. Denies any drainage coming from the ear. Has recently got over bronchitis. Related Data Home Medications Medication Instructions Recorded Confirmed fexofenadine 60 mg tablet (Brina 60 mg PO DAILY 03/05/24 03/05/24 Allergy) Allergies Allergy/AdvReac Type Severity Reaction Status Date / Time mint Allergy Severe Difficulty Verified 03/12/24 18:11 Breathing Ringer's solution,lactated Allergy Severe Difficulty Verified 03/12/24 18:11 Breathing Review of Systems Review of Systems: Pertinent positives per HPI. Patient denies any fever, chills, rash, headache, visual changes, dizziness, cough, runny nose, sore throat, shortness of breath, chest pain, palpitations, nausea, vomiting, diarrhea, constipation, abdominal pain, or any urinary issues. PMFSH Past Medical History Medical History ADHD Endometriosis Multiple sclerosis Surgical History Surgical History History of endometrial ablation History of hip surgery Social History Social History Smoking status: Never smoker Alcohol intake: current Drinks per week: 1 Alcohol use details: 1 drink every two weeks Substance use: former Substance use type: opiates Other substance usage details: Pt stated after surgery when she was 17 Last use: 10 years Living arrangements: with family Gender identity (if verbalized by the patient): Female Spiritual care concerns: No Comments At the time of my signature, I reviewed and agree with the nursing past medical, surgical, social, and family history. There is no relevant family history pertinent to the patient complaint. Exam Narrative: General: Well-developed, well nourished, in no apparent distress Head: Normocephalic, atraumatic Eyes: Pupils equally round and reactive to light bilaterally, EOM intact, sclera and conjunctive clear, no discharge, lids normal Ears: TMs intact and congested with mild bulging of the left TM ear canals clear, no drainage, grossly hearing normal. Nose: Nares patent, clear nasal discharge, no inflammation, no sinus tenderness. Mouth: Oropharynx without lesions or masses, good dentition, MMM. Neck: Supple, trachea midline, no enlargement of anterior or posterior cervical nodes, no thyroid masses or goiter palpable. Cardio: Regular rate and rhythm, s1 and s2 normal, no murmur appreciated. Resp: Clear to auscultation bilaterally anteriorly and posteriorly, no rhonchi, rales, wheezing or rubs Course Course Emergency Course: Portions of this record may have been created with voice recognition software. Level of Care: Express Care Visit Vital Signs Vital signs: Vital Signs Temperature 37.1 C 03/12/24 18:03 Pulse Rate 94 03/12/24 18:03 Respiratory Rate 16 03/12/24 18:03 Blood Pressure 116/82 03/12/24 18:03 Pulse Oximetry 100 03/12/24 18:03 Temperature 37.1 C 03/12/24 18:03 Pulse Rate 94 03/12/24 18:03 Respiratory Rate 16 03/12/24 18:03 Blood Pressure 116/82 03/12/24 18:03 Pulse Oximetry 100 03/12/24 18:03 Oxygen Delivery Room Air 03/12/24 18:07 Vital signs reviewed Medical Decision Making MDM Narrative Medical decision making narrative: At the time of visit patient is resting comfortably on the exam table. Patient appears to be nontoxic.
[2024-03-12 18:03] VITALS: BP 116/82; PULSE 94; RESP 16; TEMP 37.1; O2SAT 100
== END 2024-03-12 18:30 | disposition home or self-care (01) ==
PROVIDERS: Emergency Provider Nurse Practitioner Family
DX: H92.02 Otalgia, left ear (principal); H69.92 Unspecified Eustachian tube disorder, left ear; G35 Multiple sclerosis; N80.9 Endometriosis, unspecified
CPT/HCPCS: 99213; G0463

== ENCOUNTER 2024-04-06 08:15 | Emergency (ER) | payer OTHER, SELFPAY ==
--- NOTE | ~2024-04-06 | XR_ITS ---
. EXAMINATION: XR chest 2V 04/06/2024 08:35 INDICATION: Cough PROCEDURE: 2 view chest COMPARISON: 02/22/2024 FINDINGS: The lungs are clear. The cardiomediastinal silhouette is within normal limits. There are no pleural effusions. There is no pneumothorax suspected. IMPRESSION: 1: NO ACUTE CARDIOPULMONARY DISEASE. Reviewed, dictated and finalized at location B.
--- NOTE | 2024-04-06 08:16 | ED.URI ---
HPI - URI/Sore Throat General Chief Complaint: Upper Respiratory Infection Stated Complaint: Cough Time Seen by Provider: 04/06/24 08:16 Source: patient Mode of arrival: ambulatory Limitations: no limitations History of Present Illness HPI Narrative: Kendra is a 28-year-old female patient presenting to the clinic today for cough that has lasted over 4 weeks. She was seen on February 21 initially and diagnosed with bronchitis and was given prescription for some steroids. She was seen a few days later again and prescribed Tessalon Perles and codeine cough syrup. She reports that those medications are not helping much. Family history of asthma but no personal history of asthma. Denies any shortness of breath unless she is coughing. She is coughing up some yellow phlegm. Denies any fevers, chills, or chest pain. MD elicited complaint: sore throat and nasal congestion Related Data Home Medications Medication Instructions Recorded Confirmed fexofenadine 60 mg tablet (Brina 60 mg PO DAILY 03/05/24 04/06/24 Allergy) amitriptyline 25 mg tablet 25 mg PO DAILY 04/03/24 04/06/24 ocrelizumab 30 mg/mL intravenous 300 mg IV ONCE 04/03/24 04/06/24 solution zolmitriptan 5 mg tablet 5 mg PO DAILY 04/03/24 04/06/24 Allergies Allergy/AdvReac Type Severity Reaction Status Date / Time mint Allergy Severe Difficulty Verified 04/06/24 08:29 Breathing Ringer's solution,lactated Allergy Severe Difficulty Verified 04/06/24 08:29 Breathing Review of Systems Review of Systems: Pertinent positives per HPI. Patient denies any fever, chills, rash, headache, visual changes, dizziness,shortness of breath, chest pain, palpitations, nausea, vomiting, diarrhea, constipation, abdominal pain, or any urinary issues. [facility] Past Medical History Medical History ADHD Endometriosis Migraine Multiple sclerosis Surgical History Surgical History History of endometrial ablation History of hip surgery Family History Family History Other Hypertension Social History Social History (Reviewed 04/06/24 @ 08:39 by DYLLAN Kendrick Smoking status: Never smoker Second hand tobacco smoke exposure: No Alcohol intake: current Drinks per week: 1 Alcohol use details: 1 drink every two weeks Substance use: former Substance use type: opiates Other substance usage details: Pt stated after surgery when she was 17 Last use: 10 years Do You Feel Safe in your Home?: Yes Lack of Transportation: No Lack of Food: Never True Current Housing: I Have Housing Concerned About Future Housing: No Difficulty Paying Gas/Electric Bills: No Difficulty Paying for Meds: No Currently Unemployed: No Education: Bachelor's Degree Difficulty w/ Childcare or Family Care: No Living arrangements: with family Occupation/Education: occupation 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 There is no relevant family history pertinent to the patient complaint. Exam Narrative: General: Well-developed, well nourished, in no apparent distress Head: Normocephalic, atraumatic Eyes: Pupils equally round and reactive to light bilaterally, EOM intact, sclera and conjunctive clear, no discharge, lids normal Ears: TMs intact and clear, ear canals clear, no drainage, grossly hearing normal. Nose: Nares patent, no discharge, no inflammation, no sinus tenderness. Mouth: Oral pharynx without lesions or masses, good dentition, MMM. Neck: Supple, trachea midline, no enlargement of anterior or posterior cervi
[2024-04-06 08:23] VITALS: BP 108/76; PULSE 89; RESP 16; TEMP 36.6; O2SAT 100
== END 2024-04-06 08:56 | disposition home or self-care (01) ==
PROVIDERS: Emergency Provider Nurse Practitioner Family
DX: J40 Bronchitis, not specified as acute or chronic (principal); N80.9 Endometriosis, unspecified; G35 Multiple sclerosis
CPT/HCPCS: 71046; 99213; G0463

== ENCOUNTER 2025-03-02 08:00 | Outpatient (CLI) | payer OTHER, SELFPAY ==
--- OUTSIDE RECORDS SUMMARY | 2025-03-02 08:07 | XMS_ITS | Clinical Summary ---
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 DESIGN ENGINEER Gender Identity Not on file Sexual Orientation Not on file Last Filed Vital Signs Vital Sign Reading Time Taken Comments Blood Pressure 96/69 08/14/2024 12:20 PM MECHANICAL SYSTEMS DESIGN ENGINEER Pulse 63 08/14/2024 12:20 PM MECHANICAL SYSTEMS DESIGN ENGINEER Temperature 36.4 C (97.6 F) 08/14/2024 12:20 PM MECHANICAL SYSTEMS DESIGN ENGINEER Respiratory Rate 20 08/14/2024 12:20 PM MECHANICAL SYSTEMS DESIGN ENGINEER Oxygen Saturation 100% 08/14/2024 12:20 PM MECHANICAL SYSTEMS DESIGN ENGINEER Inhaled Oxygen Concentration - - Weight 68 kg (150 lb) 08/13/2023 8:45 AM MECHANICAL SYSTEMS DESIGN ENGINEER Height - - Body Mass Index - - Plan of Treatment Health Maintenance Due Date Last Done Comments Hepatitis C Virus (HCV) Screening 1994 Hepatitis B Immunization (1 of 3 - 19+ 3-dose series) 2013 Pap Smear 2015 Human Papillomavirus (HPV) Immunization (1 - 3-dose SCDM series) 2021 SARS-COV-2 Immunization ( season) 2024 06/23/2023, 05/30/2022, 05/26/2021 Cervical Cancer Screening (CCS) 2024 HPV/Cotest 2024 Influenza Immunization (#1) 03/09/202506/08, 05/30/2022, 05/26/2021, Additional history exists Respiratory Syncytial Virus (RSV) Immunization (Adult) (1 - 1-dose 75+ series) 2069 DTaP/Tdap/Td Immunization Discontinued 11/01/2018 TdaP Immunization Completed 11/01/2018 Meningococcal Immunization (ACWY) Aged Out No longer eligible based on patient's age to complete this topic Pneumococcal Immunization Combined Aged Out No longer eligible based on patient's age to complete this topic Rotavirus Immunization Aged Out No lo nger eligible based on patient's age to complete this topic Insurance [facility] Care Teams Route Driver Coin Machines Relationship Specialty Start Date End Date Clare Carroll PA PCP - General Family Medicine 11/29/21
--- OUTSIDE RECORDS SUMMARY | 2025-03-02 08:07 | XMS_ITS | Clinical Summary ---
Author Organization [facility] Address [address] [place] [address] Care Team Providers Care Business Development Intern Name Role Phone Clare Carroll Primary Care Pr [place]er Allergies Active Allergy Reactions Criticality Noted Date Comments [place] Itching Medium 11/09/2018 Lactated Ringers Shortness of breath,Anaphylaxis High 02/13/2019 Mint Shortness of breath High 02/08/2024 Peppermint Hives High 09/12/2018 Pineapple Unknown 09/12/2018 Propofol Anaphylaxis High 07/11/2024 Can not have gas Anesthesia Medications ocrelizumab (OCREVUS IV) Infuse into a venous catheter Every 6 months Active cholecalciferol (VITAMIN D-3) 50,000 unit capsule Take 1 capsule (50,000 Units total) by mouth 4 Active ferrous sulfate 325 mg (65 mg of elemental iron) tablet Take 1 tablet (325 mg total) by mouth daily 4 Active rizatriptan (MAXALT) 10 mg tablet Take 1 tablet (10 mg total) by mouth Active amitriptyline (ELAVIL) 25 mg tablet Take 1 tablet (25 mg total) by mouth nightly 30 tablet 11 5 09/17/19 26 Active fluticasone propionate (FLONASE) 50 mcg/actuation nasal spray Administer 2 sprays into each nostril daily 1 each 5 Active Active Problems Problem Noted Date Diagnosed Date Paresthesia of bilateral legs 02/08/2024 Medication overuse headache 04/11/2023 Closed fracture of proximal phalanx of toe 05/17 Immunosuppression due to drug therapy 12/07/2021 High risk medication use 12/07/2021 Abnormal MRI 12/07/2021 Vitamin D deficiency 12/07/2021 Dysesthesia of multiple sites 12/07/2021 Chronic fatigue disorder 12/07/2021 Femoral acetabular impingement 07/27/2021 anxiety 05/16/2019 Multiple sclerosis 05/17/2018 Overview (09/05/2022): Last Assessment & Plan: Screen with Urine C&S Q 2-3 months. Migraine 05/22/2017 Overview (09/05/2022): Last Assessment & Plan: Was on Maxalt prn. I recommend she take imitrex instead, during Heart murmur 05/22/2017 Encounters Date Type Department Care Team Description 02/24/2025 Telephone [facility] Multiple Sclerosis [address] [facility] [address] [place] [phone] Pablo Cardenas MD PhD 02/24/2025 Telephone [facility] Multiple Sclerosis [address] [facility] [address] [place] [phone] Pablo Cardenas MD PhD 02/17/2025 Letter (Out) [facility] Multiple Sclerosis [address] [facility] [address] [place] [phone] 02/13/2025 Documentation [facility] Multiple Sclerosis [address] [facility] [address] [place] [phone] Pablo Cardenas MD PhD 02/10/2025 Telephone [facility] Allergy and Immunology [address] [facility] [address] [place] [address] Apolonia Shepherd RN 12/18/2024 4:30 PM CDT Office Visit [facility] Care at [address] [phone] Sol Munoz PA Anal fissure (Primary Dx) 12/16/2024 Telephone [facility] Multiple Sclerosis [address] [facility] 6[address] [place] [address] [place] [phone] Audrey Singh 12/11/2024 8:45 AM CDT Office Visit [facility] Pending Sale To [facility] at [address] [phone] Jade Hackett NP Acute pansinusitis, recurrence not specified (Primary Dx) from Last 3 Months Immunizations Immunization Administration Dates Next Due Influenza, Quadrivalent, Spl it, Preservative Free, Intramuscular 05/26/2021,06/08/2020,07/26/2018 Rho (D) Immune Globulin 12/19/2018,10/17/2018 Tdap 11/01/2018 Surgical History Surgery Date Site/Laterality Comments HIP SURGERY Medical History Medical History Date Comments Abnormal heart rate Poor circulation Multiple sclerosis (HCC) Peptic ulceration Kidney stone Anemia Depression Migraines Malignant hyperthermia due to anesthesia Family History Medical History Relation Name Comments Arthritis Other Cancer Other Hypertension Other Multiple sclerosis Other Stroke Other Relation Name Status Comments Other Social History Tobacco Use Types Packs/Day Years Used Date Smoking Tobacco: Never Tobacco Cessation:Counseling Given: Not Answered AUDIT-C Answer Date Recorded Q1: How often do you have a drink containing alc ohol? Monthly or less 03/31/2024 Q2: How many drinks containi ng alcohol do you have on a typical day when you are drinking? 1 or 2 03/31/2024 Q3: How often do you have si x or more drinks on one occasion? Monthly 03/31/2024 Comments No Sex and Gender Information Value Date Recorded Sex Assigned at Not on file Legal Sex Female 11:06 AM MOBILE HEALTH VEHICLE OPERATOR Gender Identity Not on file Sexual Orientation Not on file Obstetrics History Last Filed Vital Signs Vital Sign Reading Time Taken Comments Blood Pressure 116/64 12/18/2024 4:32 PM CDT Pulse 86 12/18/2024 4:32 PM CDT Temperature 37.3 C (99.2 F) 12/18/2024 4:32 PM CDT Respiratory Rate 20 12/18/2024 4:32 PM CDT Oxygen Saturation 99% 12/18/2024 4:32 PM CDT Inhaled Oxygen Concentration - - Weight 64.9 kg (143 lb) 12/18/2024 4:32 PM CDT Height 170.2 cm (5' 7) 10/30/2024 3:30 PM CDT Body Mass Index 22.4 10/30/2024 3:30 PM CDT Plan of Treatment Health Maintenance Due Date Last Done Comments Cervical Cancer Screening 1994 Depression Screening 1994 Varicella Vaccines (1 of 2 - 13+ 2-dose series) 2007 Hepatitis B Screening 2012 Regular Well Visit/Exam 18-64 2012 Pneumococcal vaccine <65 (1 of 2 - PCV) 2013 Zoster Vaccine (1 of 2) 2013 Covid-19 Vaccine (2 - Pfizer risk series) 06/16/2021 05/26/2021 HPV Vaccines (1 - 3-dose SCDM series) 2021 Influenza Vaccine (#1) 2025 , 06/08/2020, 07/26/2018 DTaP/Tdap/Td Vaccine (2 - Td or Tdap) 11/01/2028 Hepatitis C Screening Completed 08/16/2021 Procedures Procedure Name Priority Date/Time Associated Diagnosis Comments IMMUNOGLOBULINS A/E/G/M, SERUM Routine 02/09/2025 11:20 AM CDT Multiple sclerosis (HCC) High risk medication use Immunosuppression due to drug therapy LYMPHOCYTE SUBSET PANEL 1 Routine 02/09/2025 11:20 AM CDT Multiple sclerosis (HCC) High risk medication use Immunosuppression due to drug therapy COMPREHENSIVE METABOLIC PANEL Routine 02/09/2025 11:20 AM CDT Multiple sclerosis (HCC) High risk medication use Immunosuppression due to drug therapy CBC WITH AUTO DIFFERENTIAL Routine 02/09/2025 11:20 AM CDT Multiple sclerosis (HCC) High risk medication use Immunosuppression due to drug therapy HEPATITIS C ANTIBODY Routine 08/16/2021 1:44 PM MOBILE HEALTH VEHICLE OPERATOR Multiple sclerosis (HCC) from Last 3 Months or Most Recently Relevant to Health Maintenance Results * (ABNORMAL) Immunoglobulins A/E/G/M, Serum (02/09/2025 11:20 AM CDT) [facility] Immunoglobulin A 143 47 - 310 mg/dL [facility] Immunoglobulin E 5 <GH=299 kU/L [facility] Immunoglobulin G 1,300 600 - 1,640 mg/dL [facility] Immunoglobulin M 48(L) 50 - 300 mg/dL [facility] Blood 02/09/2025 11:2 0 AM CDT 02/09/2025 11:21 AM CDT Narrative [facility] - 02/11/2025 4:04 PM CDT FASTING:NO FASTING: NO us Pablo Cardenas MD PhD LAB BLOOD ORDERABLES F inal Result [facility] [address] [place] [address] * (ABNORMAL) Lymphocyte subset panel 1 (02/09/2025 11:20 AM CDT) [facility] % CD3 91(H) 57 - 85 % [facility] Absolute CD3+ cells 1,371 840 - 3,060 cells/uL [facility] CD4 % 63(H) 30 - 61 % [facility] CD4 cells 971 490 - 1,740 cells/uL [facility] % CD8 27 12 - 42 % [facility] Absolute CD8+ cells 425 180 - 1,170 cells/uL [facility] [place]/Suppres sor ratio 2.28 0.86 - 5.00 [facility] % CD16+CD56 8 4 - 25 % [facility] Absolute NK cells (CD16+CD56+SWATHI LS) 112 70 - 760 cells/uL [facility] CD19 pct 6 - 29 % [facility] Comment:Less than 1 Absolute CD19+ CELLS <20(L) 110 - 660 cells/uL [facility] Lymphocytes, abs 1,510 850 - 3,900 cells/uL [facility] Blood 02/09/2025 11:2 0 AM CDT 02/09/2025 11:21 AM CDT Narrative [facility] - 02/11/2025 4:04 PM CDT FASTING:NO FASTING: NO us Pablo Cardenas MD PhD LAB BLOOD ORDERABLES F inal Result [facility] [address] [place] [address] * (ABNORMAL) CBC with auto differential (02/09/2025 11:20 AM CDT) Pathologist [facility] WBC 5.8 3.8 - 10.8 Thousand/u L [facility] RBC, POC 3.82 3.80 - 5.10 Million/uL [facility] Hgb 10.4(L) 11.7 - 15.5 g/dL [facility] Hct 33.6(L) 35.0 - 45.0 % [facility] MCV 88.0 80.0 - 100.0 fL [facility] MCH 27.2 27.0 - 33.0 pg [facility] MCHC 31.0(L) 32.0 - 36.0 g/dL [facility] Comment: For adults, a slight decrease in the calculated MCHC value (in the range of 30 to 32 g/dL) is most likely not clinically significant; however, it should be interpreted with caution in correlation with other red cell parameters and the patient's clinical condition. Rdw 12.5 11.0 - 15.0 % [facility] Platelets 262 140 - 400 Thousand/u L [facility] MPV 10.4 7.5 - 12.5 fL [facility] Neutrophils, abs 3,874 1,500 - 7,800 cells/uL [facility] Lymphocytes, abs 1,514 850 - 3,900 cells/uL [facility] Monocyte abs 354 200 - 950 cells/uL [facility] Eosinophils, abs 29 15 - 500 cells/uL [facility] Basophils, abs 29 0 - 200 cells/uL [facility] Neutrophils 66.8 % [facility] Lymphocyte pct 26.1 % [facility] Monocytes 6.1 % [facility] Eosinophils 0.5 % [facility] Basophils 0.5 % [facility] Blood 02/09/2025 11:2 0 AM CDT 02/09/2025 11:21 AM CDT Narrative [facility] - 02/11/2025 4:04 PM CDT FASTING:NO FASTING: NO us Pablo Cardenas MD PhD LAB BLOOD ORDERABLES F inal Result [facility] [address] [place] [address] * (ABNORMAL) Comprehensive metabolic panel (02/09/2025 11:20 AM CDT) Glucose 95 65 - 139 mg/dL [facility] Comment: Non-fasting reference interval BUN 6(L) 7 - 25 mg/dL [facility] Creatinine 0.46(L) 0.50 - 0.97 mg/dL [facility] eGFR 132 > OR = 60 mL/min/1.7 3m2 [facility] BUN/creat ratio 13 6 - 22 (calc) [facility] Sodium 140 135 - 146 mmol/L [facility] Potassium, pl 3.9 3.5 - 5.3 mmol/L [facility] Chloride 106 98 - 110 mmol/L [facility] CO2 26 20 - 32 mmol/L [facility] Calcium 9.0 8.6 - 10.2 mg/dL [facility] Protein, sr 7.2 6.1 - 8.1 g/dL [facility] Albumin 4.5 3.6 - 5.1 g/dL [facility] GLOBULIN 2.7 1.9 - 3.7 g/dL (calc) [facility] Alb/glob ratio 1.7 1.0 - 2.5 (calc) [facility] Bilirubin, total 0.5 0.2 - 1.2 mg/dL [facility] Alk phos 82 31 - 125 U/L [facility] AST 20 10 - 30 U/L [facility] ALT (SGPT) 10 6 - 29 U/L [facility] Blood 02/09/2025 11:2 0 AM CDT 02/09/2025 11:21 AM CDT Narrative [facility] - 02/11/2025 4:04 PM CDT FASTING:NO FASTING: NO Pablo Cardenas MD PhD LAB BLOOD ORDERABLES F inal Result [facility] [address] [place] [address] * Hepatitis C antibody (08/16/2021 1:44 PM MOBILE HEALTH VEHICLE OPERATOR) Hep C Ab Nonreactive Nonreactive [facility] Comment:Antibodies to HCV no t detected. Does NOT exclude the possibility of recent exposure to HCV. Blood 08/16/2021 1:44 PM MOBILE HEALTH VEHICLE OPERATOR 08/16/2021 6:03 PM MOBILE HEALTH VEHICLE OPERATOR Pablo Cardenas MD PhD LAB MICROBIOLOGY - GEN ERAL ORDERABLES Edited Result - Final [facility] Department [place] [address] from Last 3 Months or Most Recently Relevant to Health Maintenance Insurance [facility] CHOICE PLUS [facility] CHO[facility] PLUS [facility] CHO[facility] PLUS Care Teams Business Development Intern Relationship Specialty Start Date End Date Clare Carroll PA PCP - General Physician Carry In Worker 12/09/21
--- OUTSIDE RECORDS SUMMARY | 2025-03-02 08:07 | XMS_ITS | Clinical Summary ---
Author Organization [facility] Address [address] [place] [address] Care Team Providers Care Felt Cutter Name Role Phone Meaghan Mcgowan TABULAR TYPIST-[facility] Primary Care Provider [phone] Source Comments [facility],non-owned Affiliates and Associated Physician Practices is amultiple site organization consisting of ambulatory clinics and hospital sitesin [place], [place], [place] and [place]. This disclosure is being madepursuant to the Care Everywhere program and may not contain all information available regarding this patient. Last updated 18.[facility] iWOP[facility] Allergies Active Allergy Reactions Criticality Noted Date Comments Propofol Anaphylaxis High 07/11/2024 [place] Extract Itching Medium 11/09/2018 Lactated Ringers Anaphylaxis,Shortness of Breath High 02/13/2019 Peppermint Oil Urticaria,Shortness of Breath High Pineapple Unknown 09/12/2018 Medications * Be aware that medications may not be up to date on this document. Alwaysverify current medications with the patient. OCRELIZUMAB IV 600 mg by Intravenous route Active FeroSul 325 (65 Fe) MG tablet Take 1 (one) tablet by mouth once daily 4 Active rizatriptan (Maxalt) 10 MG tablet Take 1 (one) tablet by mouth daily as needed - may repeat one time for Migraine Active Active Problems Problem Noted Date Diagnosed Date Left hip pain 07/11/2024 Femoroacetabular impingement of left hip 025 Social History Tobacco Use Types Packs/Day Years Used Date Smoking Tobacco: Never Assessed PHQ-2 Answer Date Recorded Patient Health Questionnaire-2 Score 0 07/11/2024 Comments Unknown Sex and Gender Information Value Date Recorded Sex Assigned at Not on file Legal Sex Female 3:32 PM BATTERY WRECKER OPERATOR Gender Identity Not on file Sexual Orientation Not on file Plan of Treatment Health Maintenance Due Date Last Done Comments HIV SCREENING 2009 HEPATITIS C SCREENING 08/30/2012 DTAP/TDAP/TD VACCINES (1 - Tdap) 2013 HEPATITIS B VACCINE (1 of 3 - 19+ 3-dose series) 2013 PAP SMEAR 2015 HPV VACCINE (1 - 3-dose SCDM series) 2021 COVID-19 VACCINE (1 - 2023-2 5 season) 2024 INFLUENZA VACCINE (#1) 2025 , 06/08/2020, 07/26/2018 ZOSTER VACCINE (1 of 2) 2044 DEPRESSION SCREENING Completed 07/11/2024 HIB VACCINE Aged Out No longer eligi ble based on patient's age to complete this topic MENINGOCOCCAL (Group B) VACCINE SHARED DECISION-MAKING Aged Out No longer eligible based on patient's age to complete this topic MENINGOCOCCAL GROUPS A/C/Y/W VACCINE Aged Out No longer eligible b ased on patient's age to complete this topic PNEUMOCOCCAL VACCINE Aged Out No long er eligible based on patient's age to complete this topic Insurance [facility] Address: [facility] [id number] [place] [address] Care Teams Felt Cutter Relationship Specialty Start Date End Date Meaghan Mcgowan APRN-DELIVERY DRIVER/SUPERVISOR [facility] [place] [address] PCP - General Certified Clinical Nurse Specialist 06/02/24
[2025-03-02 08:33] LABS: Hematocrit 35.5 % (37.0-47.0); Hemoglobin 10.7 g/dL (12.0-15.0); Mean Corpuscular HGB Conc 30.1 g/dl (32-36); Mean Corpuscular Hemoglobin 26.6 pg (26-34); Mean Corpuscular Volume 88.3 fl (80-100); Platelet Count Result 250 k/mm3 (150-375); Red Blood Count 4.02 M/mm3 (4.2-5.4); White Blood Count 4.7 K/mm3 (4.5-10.0)
== END 2025-03-02 08:01 | disposition home or self-care (01) ==
LOC: ANHSURGERY 08:03
PROVIDERS: PCP Clinical Nurse Specialist; Visit Provider Student in an Organized Health Care Education/Training Program
DX: N80.9 Endometriosis, unspecified (principal)
CPT/HCPCS: 36415; 85027; 86850; 86900; 86901

== ENCOUNTER 2025-03-10 00:45 | Day surgery (SDC) | payer OTHER, SELFPAY ==
[2025-02-24 10:30] VITALS: BMI 22.7
--- NOTE | 2025-02-24 12:29 | PC.NURSE ---
Report to the Outpatient Waiting Room, entrance under the green pavilion located off [facility], at 0600 on 03-10-25. Planned Procedure Time: 0730.? Time changes happen often and if your time is changed the preop area will call you the afternoon before. - You and your visitor will be asked to self-screen and do not enter if you have any COVID symptoms. Please call surgeon if you need to reschedule. - A mask is optional within the hospital at this time. Patients may have clear liquids (water, carbonated beverages, clear teas, apple juice) until 3 hours prior to surgery with a maximum of 20 ounces. 0430 - No food from midnight until time of surgery and no smoking, or chewing tobacco (or any form of nicotine). No chewing gum, candy or mints. - Infants may have breast milk until 4 hours before surgery, formula 6 hours prior to surgery. - Children will be allowed to drink immediately following surgery.? If applicable, please bring a bottle or sippy cup to assist with drinking. Juice, water, soda, and popsicles are readily available.? For infants on formula, please bring formula the day of surgery.? Pacifiers are allowed. Take only the following medications with a SIP of water on the morning of surgery: amitriptyline if needed DO NOT STOP ANY OF YOUR OTHER PRESCRIPTION MEDICATIONS PRIOR TO SURGERY EXCEPT THE FOLLOWING Hold all vitamins and supplements for 3 days per anesthesiologist. Iron (2024 to take last dose) Medications to discontinue per physician: Patient will ask Dr. Garcia about Paresh Sousa Please no make-up, nail turkmen, hairspray, perfume, deodorant, or body powder the day of surgery.? No jewelry (including any body piercings) or valuables the day of surgery, leave them at home.? Please take a shower or bath the night before, or the morning of, surgery with an antibacterial soap.? Wear comfortable, loose fitting clothing.? Children are encouraged to wear pajamas. - Jewelry must be removed prior to entering the operating room.? Rings and piercings that are not removed may be cut off. - The hospital will not accept responsibility for valuables.? - Please leave all valuables, including medications, at home the day of surgery. If you are going home after surgery, a licensed drivers license examiner must drive you home.? - NO public transportation without another adult if you receive anesthesia. - We recommend that an adult stay with you for 24 hours following discharge. - We also recommend that you do not drive, make important decision, drink alcoholic beverages, or take any drugs that were not prescribed by your health care provider for at least 24 hours after your discharge time. For Pediatric surgeries, we recommend two adults accompany the child home. Follow any additional instructions given to you from your surgeon. Telephone instructions given to Kendra Vivas and asked if any additional questions and then verbalized understanding. Patient advised to call surgeon office or pre surgery nurse liaison [phone] if any additional questions.
--- NOTE | 2025-03-09 21:10 | PM.IMHP ---
H&P: HPI History of Present Illness Date/Time: 03/09/25 21:10 Chief Complaint: pelvic pain endometriosis Narrative: 29-year-old female who presents for robotic assisted TLH/BS for pelvic pain secondary to endometriosis. Patient has known laparoscopic proven endometriosis. Patient currently has Mirena IUD in for menstrual suppression. Patient states her heavy bleeding is fairly controlled but she continues to have pelvic pain, cramping, bloating, dyspareunia. Review of Systems Cardiovascular: Cardiovascular: Denies chest pain, Denies leg edema, Denies palpitations, Denies dyspnea and Denies dyspnea on exertion Respiratory: Respiratory: Denies cough, Denies dyspnea and Denies dyspnea on exertion Gastrointestinal: Gastrointestinal: Denies abdominal pain, Denies constipation, Denies diarrhea, Denies nausea and Denies vomiting Genitourinary: Genitourinary: Denies hematuria, Denies urinary frequency, Denies dysuria, Denies pelvic pain, Denies urinary incontinence and Denies vaginal discharge Neurologic: Reports system reviewed and no additional complaints, except as documented Psychiatric: Psychiatric: Reports no additional psychiatric complaints Endocrine: Endocrine: Denies palpitations PMFSH Past Medical History Medical History Migraine Endometriosis ADHD Multiple sclerosis Surgical History Surgical History H/O gynecological procedure History of hip surgery laparoscopy with destruction of endometriosis Family History Family History Mother Asthma Sibling Asthma Other Hypertension Social History Social History Smoking status: Never smoker Second hand tobacco smoke exposure: No Alcohol intake: current Drinks per week: 1 Alcohol use details: socially 1-2 drinks per month Substance use: never Substance use type: does not use Other substance usage details: Pt stated after surgery when she was 17 Last use: 10 years Do You Feel Safe in your Home?: Yes Lack of Transportation: No Lack of Food: Never True Current Housing: I Have Housing Concerned About Future Housing: No Difficulty Paying Gas/Electric Bills: No Difficulty Paying for Meds: No Currently Unemployed: No Education: Bachelor's Degree Difficulty w/ Childcare or Family Care: No Living arrangements: with family Occupation/Education: occupation 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[employer] Gender identity (if verbalized by the patient): Female Spiritual care concerns: No Meds Home Medications and Allergies Home Medications ?Medication ?Instructions ?Recorded ?Confirmed ?Type amitriptyline 25 mg tablet 25 mg PO DAILY PRN nerve pain 04/03/24 02/24/25 History ocrelizumab 920 23 ml subcut [id number] 04/21/24 02/24/25 History fx-lyckgnmlbyryc-dcch 23,000 unit/23 mL subcut soln (Ocrevus Zunovo) ferrous sulfate 325 mg (65 mg 325 mg PO DAILY #90 tabs 06/17/24 02/24/25 Rx iron) tablet levonorgestrel (Mirena) 1 device intrauterine ONCE 10/03/24 02/24/25 History alprazolam 0.25 mg tablet (Xanax) 0.25 mg PO DAILY PRN anxiety #10 10/06/24 02/24/25 Rx tabs Allergies Allergy/AdvReac Type Severity Reaction Status Date / Time mint Allergy Severe Difficulty Verified 02/24/25 10:26 Breathing pineapple Allergy Severe Swelling Verified 02/24/25 10:26 of Lip/Tongue/Throat Ringer's solution,lactated Allergy Severe Difficulty Verified 02/24/25 10:26 Breathing anesthesia Allergy Severe malignant Uncoded 02/24/25 12:29 hyperthermia Exam Const: General: no acute distress Eyes: EOM: EOMs intact bilaterally Neck: Neck: supple Thyroid: thyroid normal Chest: Breast/axilla inspection: normal inspection of the breasts Breast/axilla palpation: normal palpation of the breasts, normal palpation of the axillae and no axillary lymphadenopathy Resp: Effort & Inspection: normal respiratory effort Auscultation: clear to auscultation bilaterally Cardio: Rate: regular rate Rhythm: regular rhythm GI: Inspection: non-distended GI Palp: Yes Soft to palpation, No Tenderness to palpation present (GI) and No Guarding due to palpation present (GI) Auscultation: normal bowel sounds : General: No bladder normal to palpation External Female Exam: normal external appearance Speculum Exam - Vagina: normal vaginal discharge and No vaginal bleeding Speculum Exam - Cervix: nontender Bimanual exam- vagina & uterus: No bladder normal to palpation and No Cervical tenderness present OB/external & speculum: No vaginal bleeding Skin: General skin exam: normal color and no rashes or lesions noted Neuro: Cognition (Neuro): normal cognition Speech: normal speech Extrem: General: normal to inspection and no edema Psych: Mental Status: mental status grossly normal Affect: normal affect Assessment and Plan Assessment and plan (1) Pelvic pain: Code(s): R10.2 - Pelvic and perineal pain Status: Acute Assessment and Plan: 29-year-old female who presents for follow-up regarding pelvic pain Patient has chronic pelvic pain secondary to endometriosis She has laparoscopy proven endometriosis Currently has IUD in place to help manage heavy menses Patient continues to have pain, cramping, bloating, dyspareunia Pelvic ultrasound was obtained, images reviewed, IUD in correct positioning with no structural causes of pain Discussed management options regarding pain secondary to endometriosis Offered patient alternative hormonal contraceptives and the addition of GnRH agonist /antagonist. Robotic assisted hysterectomy with bilateral salpingectomy discussed at length Risks, benefits, alternatives reviewed (2) Endometriosis: Code(s): N80.9 - Endometriosis, unspecified Status: Acute
[2025-03-10] VITALS (13 sets, daily range): BP systolic 92–122; BP diastolic 61–83; PULSE 74–118; RESP 12–20; TEMP 36.7–37; O2SAT 92–100
--- OUTSIDE RECORDS SUMMARY | 2025-03-10 00:47 | XMS_ITS | Clinical Summary ---
Author Organization [facility] Address [address] [place] [address] Care Team Providers Care Waistband Setter Lockstitch Name Role Phone Meaghan Mcgowan [facility] Primary Care Provider [phone] Source Comments [facility],non-owned Affiliates and Associated Physician Practices is amultiple site organization consisting of ambulatory clinics and hospital sitesin [place], [place] and [place]. This disclosure is being madepursuant to the Care Everywhere program and may not contain all information available regarding this patient. Last updated 18.[facility] Describe[facility] Allergies Active Allergy Reactions Criticality Noted Date Comments Propofol Anaphylaxis High 07/11/2024 [place] Extract Itching Medium 11/09/2018 Lactated Ringers Anaphylaxis,Shortness [...] on file Legal Sex Female 3:32 PM [facility] SHIFT LEAD Gender Identity Not on file Sexual Orientation [...] patient's age to complete this topic Insurance [facility] [place] [address] Care Teams Waistband Setter Lockstitch Relationship Specialty Start Date End Date Meaghan Mcgowan APRN-RN [facility] [place] [address] PCP - General Certified Clinical Nurse Specialist 06/02/24
--- OUTSIDE RECORDS SUMMARY | 2025-03-10 00:47 | XMS_ITS | Clinical Summary ---
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 Gender Identity Not on file Sexual Orientation Not on file Last Filed Vital Signs Vital Sign Reading Time Taken Comments Blood Pressure 96/69 08/14/2024 12:20 PM SEED LABORATORY TECHNICIAN Pulse 63 08/14/2024 12:20 PM SEED LABORATORY TECHNICIAN Temperature 36.4 C (97.6 F) 08/14/2024 12:20 PM SEED LABORATORY TECHNICIAN Respiratory Rate 20 08/14/2024 12:20 PM SEED LABORATORY TECHNICIAN Oxygen Saturation 100% 08/14/2024 12:20 PM SEED LABORATORY TECHNICIAN Inhaled Oxygen Concentration - - Weight 68 kg (150 lb) 08/13/2023 8:45 AM SEED LABORATORY TECHNICIAN Height - - Body Mass Index - [...] patient's age to complete this topic Insurance [facility] [employer] [facility] Care Teams Training Facilitator Relationship Specialty Start Date End Date Clare Carroll PA PCP - General Family Medicine 11/29/21
[2025-03-10] MEDS: SODIUM CHLORIDE 0.9% IV 1,000 ML 30 ML IV CONT ×2 (06:50→09:08)
--- NOTE | 2025-03-10 07:03 | P.PNAN_ITS ---
Anes - Initial Pre Proc Eval Procedure: Operation Date: 03/10/25 07:30 Proposed Procedures p Robotic Assisted Total Laparoscopic Hysterectomy with Bilateral Salpingectomy - Galen Garcia MD Date/Time: 03/10/25 07:03 Surgeon: Galen Garcia MD Pre Op Diagnosis: endometriosis Patient Data Age: 29 Gender: F Height: 1.7 m Weight: 65.77 kg Allergies Allergy/AdvReac Type Severity Reaction Status Date / Time mint Allergy Severe Difficulty Verified 02/24/25 10:26 Breathing pineapple Allergy Severe Swelling Verified 02/24/25 10:26 of Lip/Tongue/Throat Ringer's solution,lactated Allergy Severe Difficulty Verified 02/24/25 10:26 Breathing anesthesia Allergy Severe malignant Uncoded 02/24/25 12:29 hyperthermia Home Medications ?Medication ?Instructions ?Recorded ?Confirmed ?Type amitriptyline 25 mg tablet 25 mg PO DAILY PRN nerve pa in 04/03/24 03/10/25 History ocrelizumab 920 23 ml subcut [id number] 03/10/25 History ef-klplufypbpsog-tfjq 23,000 unit/23 mL subcut soln (Ocrevus Zunovo) ferrous sulfate 325 mg (65 mg 325 mg PO DAILY #90 tabs 06/17/24 03/10/25 Rx iron) tablet levonorgestrel (Mirena) 1 device intrauterine ONCE 0 10/03/24 02/24/25 History alprazolam 0.25 mg tablet (Xanax) 0.25 mg PO DAILY PRN anxiety #10 10/06/24 02/24/25 Rx tabs Patient hx anesthesia problems: none Family hx anesthesia problems: none Results Review: All pre-operative results and documents have been reviewed as part of the pre- operative evaluation. [facility] Past Medical History Medical History Migraine Endometriosis ADHD Multiple sclerosis Surgical History Surgical History H/O gynecological procedure History of hip surgery laparoscopy with destruction of endometriosis Family History Family History Mother Asthma Sibling Asthma Other Hypertension Social History Social History (Reviewed 10/23/24 @ 15:12 by JOLENE Johnson Smoking status: Never smoker Second hand tobacco smoke exposure: No Alcohol intake: current Drinks per week: 1 Alcohol use details: socially 1-2 drinks per month Substance use: never Substance use type: does not use Other substance usage details: Pt stated after surgery when she was 17 Last use: 10 years Do You Feel Safe in your Home?: Yes Lack of Transportation: No Lack of Food: Never True Current Housing: I Have Housing Concerned About Future Housing: No Difficulty Paying Gas/Electric Bills: No Difficulty Paying for Meds: No Currently Unemployed: No Education: Bachelor's Degree Difficulty w/ Childcare or Family Care: No Living arrangements: with family Occupation/Education: occupation 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[employer] Gender identity (if verbalized by the patient): Female Spiritual care concerns: No Anes - Eval Final PreProcedure Day of Procedure 03/10/25 07:03 Patient weight: normal Heart: regular rate and rhythm Lungs: clear to auscultation Airway: Mallampati scale class II Neurological: alert and oriented Last oral intake: >/= 8 hours ASA classification: III Emergent: no Anesthetic plan: proceed Anesthesia type and monitoring: general ETT and standard monitoring Results Review: All pre-operative results and documents have been reviewed as part of the pre-operative evaluation. Informed Consent: The patient's anesthetic plan and its attendant risks and benefits were discussed with the patient/family/POA. Questions were solicited and answers provided to the satisfaction of the patient/family/POA.
[2025-03-10] MEDS: ACETAMINOPHEN 500 MG TABLET 1000 MG PO ×2 (07:18→19:12)
[2025-03-10] MEDS: KETOROLAC 15 MG/ML VIAL (*BKC) IV PUSH (07:20)
--- NOTE | 2025-03-10 07:20 | WPDHPUPDATE1 ---
History and Physical Update Update Date/Time: 03/10/25 07:20 History and Physical has been reviewed, including an updated exam of the patient. There are NO changes in the patient's condition. Risks, benefits, and alternatives have been discussed and questions answered. Patient agrees to proceed with procedure.
[2025-03-10] MEDS: ceFAZolin 2 GM in SODIUM CHLORIDE 0.9% IV 50 ML 100 ML IVPB (07:32)
[2025-03-10] MEDS: LIDO 1%/EPINEPHRINE 1:100,000 20 ML VIAL INFILTRATE (08:18)
--- NOTE | 2025-03-10 08:39 | W.PM.PROC2 ---
Procedure Note - Detailed Date of Procedure 03/10/25 Pre-op Diagnosis endometriosis pelvic pain Post-op Diagnosis Same Procedure Performed robotic assisted total laparoscopic hysterectomy and bilateral salpingectomy Surgeon Galen Garcia MD Anesthesia General Indications pelvic pain endometriosis Findings normal appearing uterus, bilateral fallopian tubes and ovaries Description of Procedure After the patient was appropriately consented she was taken to the operating room where she was transferred to the table in a dorsal supine position. General anesthesia was then induced with endotracheal intubation. The patient was transferred to a dorsal lithotomy position using adjustable yellow-fin stirrups. Her position was adjusted for appropriate support of her lower back and lower extremities. The patient was prepped and draped. A transurethral kennedy catheter was place. The cervix was sequentially dilated and a MARIELLE uterine manipulator placed in typical fashion about a 3cm TRACY ring. Gloves were changed. After confirmation of a functioning orogastric tube, lidocaine was injected at Onofre's point in the LUQ and a 5mm incision was made. A 5mm Optiview trocar was then inserted into the abdominal cavity under direct visualization and done so without complication. The abdomen was then insufflated with approximately 2-3L of CO2 establishing a pneumoperitoneum and the patient was placed in Trendelenburg position. Just above the umbilicus in the midline, a 8 mm incision made after injection of lidocaine and a 8 mm bladeless trocar advanced into the abdominal cavity under direct visualization without incident. We subsequently placed two robotic ports in a similar fashion, one in the left mid-quadrant and one in the right, 10cm lateral to the midline port. The robot was then docked. Attention was turned to the left pelvis. The left fallopian tube was removed by sequentially dividing the mesosalpinx towards the uterus sparing the ovary. The utero-ovarian ligament was desiccated and transected, as was the round ligament. The posterior peritoneal leaf was taken down to the TRACY ring. The anterior leaf was developed as well as the start of the bladder flap. The left uterine artery was then skeletonized and desiccated and transected just above the level of the TRACY ring. Attention was turned to the right pelvis. The right fallopian tube was removed by sequentially dividing the mesosalpinx towards the uterus sparing the ovary. The utero-ovarian ligament was desiccated and transected, as was the round ligament. The posterior peritoneal leaf was taken down to the TRACY ring. The anterior leaf was developed as well as the start of the bladder flap. The right uterine artery was then skeletonized and desiccated and transected just above the level of the TRACY ring. The bladder was then further dissected inferiorly over the level of the TRACY ring. A circumferential colpotomy was made using monopolar current. The uterus, cervix, bilateral tubes were then delivered transvaginally. I then placed a single figure of eight suture of 0-vicryl in the left corner of the vaginal cuff. I then re-approximated the colpotomy with a running #1 PDO Quill suture in 2 layers. Following this dissection, the abdomen and pelvis were copiously irrigated and all surgical sites found to be hemostatic. Skin sites were reapproximated with 4-0 Vicryl in a subcuticular fashion. Steri-Strips were placed. The patient tolerated the procedure well. Sponge, needle and instrument counts were correct x 2 and the patient was taken to recovery in stable condition. Ancef was given for antimicrobial prophylaxis. The patient had SCD's on for VTE prophylaxis during the entire procedure. Estimated Blood Loss 10 Drains No Packing No Pathology Yes (uterus, cervix, bilateral fallopian tubes) Complications No immediate complications Condition Stable Disposition PACU [facility] Billing Surgery - Charge Forward: Surgery Billing
--- NOTE | 2025-03-10 08:44 | S_PTH ---
PATIENT: Kendra Vivas I LOC: [facility] U#:[id number] AGE/SX: 29/F ROOM: RE03/10/[address]: Galen Garcia MD : 1995 BED: DIS: 03/11/2025 SPEC #: [id number] RECD: 03/10/25 09:27 STATUS: HIEN REQ #: [id number] MEDINA: 03/10/25 08:[address]: Galen Garcia DEPT: [facility] Surgical RECD BY: Pau Pena ENTERED: 03/10/25 09:27 SP TYPE: Surgical OTHR DR: Meaghan Mcgowan APRN Tissues: A - Uterus Procedures: Hematoxylin and Eosin Stain Gross and Microscopic Level 5
[2025-03-10] MEDS: fentaNYL CITRATE INJ (*CRX) 100 MCG/2 ML VIAL 25 MCG IV PUSH ×8 (09:08→09:36)
[2025-03-10] MEDS: HYDROmorphone HCL INJ (*CRX) 1 MG/ML SYR 0.5 MG IV PUSH ×4 (09:47→10:14)
--- NOTE | 2025-03-10 11:00 | PC.NURSE ---
This patient, Kendra Vivas, was received from PACU on 03/10/25 at 1100. Patient/family oriented to unit policies and routines.
[2025-03-10] MEDS: ONDANSETRON INJ 4 MG/2 ML VIAL IV PUSH ×2 (13:38→21:00)
[2025-03-10] MEDS: KETOROLAC 30 MG/ML VIAL (*BKC) IV PUSH ×2 (13:59→19:12)
[2025-03-10] MEDS: SODIUM CHLORIDE 0.9% IV 1,000 ML 125 ML IV CONT (16:26)
--- NOTE | 2025-03-10 17:12 | PHAR ---
Brought from home box of [employer] 250mg gas relief softgels #12 and box of gas-X simethicone 125mg carrillo creme chewable tablets #18
[2025-03-10] MEDS: DOCUSATE SODIUM 100 MG CAPSULE PO (19:13)
--- NOTE | 2025-03-10 19:13 | PC.NURSE ---
1730 Received gas relief medication back from pharmacy, patient chose to take the Gas-X Simethicone 125mg Perla Cream Chewable tablet. Per pharmacy RN to enter in a non-formulary medication order and order from physician that it is okay for the patient to take the over the counter medication for gas pain/relief.
[2025-03-10] MEDS: SIMETHICONE 125 MG PO (19:24)
[2025-03-10] MEDS: oxyCODONE HCL (*CRX) 5 MG TAB IR 10 MG PO (21:06)
[2025-03-10] MEDS: PROMETHAZINE HCL 25 MG/ML AMPUL 12.5 MG IV PUSH (21:06)
[2025-03-11] MEDS: SODIUM CHLORIDE 0.9% IV 1,000 ML 125 ML IV CONT (00:13)
[2025-03-11 00:15] VITALS: BP 98/70; PULSE 80; RESP 15; TEMP 36.8; O2SAT 98
[2025-03-11] MEDS: KETOROLAC 30 MG/ML VIAL (*BKC) IV PUSH (00:16)
[2025-03-11 04:42] VITALS: BP 96/60; PULSE 76; RESP 16; TEMP 36.9; O2SAT 98
[2025-03-11] MEDS: ACETAMINOPHEN 500 MG TABLET 1000 MG PO (04:56)
[2025-03-11] MEDS: IBUPROFEN 600 MG TABLET PO (04:59)
[2025-03-11 05:12] LABS: Hematocrit 29.4 % (37.0-47.0); Hemoglobin 9.2 g/dL (12.0-15.0); Immature Granulocyte Percent A 0.7 % (0-0.5); Lymphocytes Absolute Auto 0.93 K/mm3 (0.9-3.2); Mean Corpuscular HGB Conc 31.3 g/dl (32-36); Mean Corpuscular Hemoglobin 26.2 pg (26-34); Mean Corpuscular Volume 83.8 fl (80-100); Nucleated Red Blood Cells Absolute Auto 0.000 K/mm3 (0.0-0.012); Nucleated Red Blood Cells Perc 0.0 % (0.0-0.2); Platelet Count Result 209 k/mm3 (150-375); Red Blood Count 3.51 M/mm3 (4.2-5.4); White Blood Count 14.4 K/mm3 (4.5-10.0)
--- NOTE | 2025-03-11 07:28 | WPDANESPN ---
Anes - Prog Note Post-Op Date/Time: 03/11/25 07:28 Cardiovascular status: normal Respiratory status: normal Airway patency: baseline Mental status: baseline Post-Op hydration status: normal Vital Signs: Last Vital Signs Temp 36.9 C 03/11/25 04:42 Pulse 76 03/11/25 04:42 Resp 16 03/11/25 04:42 BP 96/60 L 03/11/25 04:42 Pulse Ox 98 03/11/25 04:42 O2 Del Method Room Air 03/11/25 04:42 O2 Flow Rate 6 03/10/25 09:25 Pain Score (VAS): 0 I/O: Intake & Output 03/10/25 03/10/25 03/11/25 15:59 23:59 07:59 Intake Total 1250 1522.9 Output Total 950 Balance 300 1522.9 Laboratory Tests 03/11/25 04:45 03/11/25 04:45 WBC 14.4 H RBC 3.51 L Hgb 9.2 L Hct 29.4 L MCV 83.8 MCH 26.2 MCHC 31.3 L RDW 12.3 Plt Count 209 MPV 10.5 H Immature Gran % (Auto) 0.7 H Neut % (Auto) 87.4 H Lymph % (Auto) 6.5 L [place] % (Auto) 5.3 Eos % (Auto) 0.0 Baso % (Auto) 0.1 L Lymph # (Auto) 0.93 [place] # (Auto) 0.8 H Eos # (Auto) 0.0 Baso # (Auto) 0.0 Abs Immat Gran (auto) 0.10 H Absolute Neuts (auto) 12.6 H Absolute Nucleated RBC 0.000 Nucleated RBC % 0.0 Post-procedural complaints: none Patient Feedback: Patient satisfied with anesthetic care.
--- NOTE | 2025-03-11 07:37 | P.DS_ITS ---
DS: Admitting Diagnosis Discharge Date 03/11/25 Admitting Diagnosis Pelvic pain Endometriosis DS: Discharge Diagnosis Discharge Diagnosis (1) H/O: hysterectomy: Code(s): Z90.710 - Acquired absence of both cervix and uterus Status: Acute DS: Summary Hospital Course Hospital Course: 29-year-old female who was admitted after robotic assisted TLH / BS for pelvic pain secondary to endometriosis. Procedure was uncomplicated. Patient struggled with nausea postoperatively. Remainder of her postoperative course was uncomplicated. She was discharged home on postoperative day 1 Status at Discharge Functional status at discharge: independent ambulation Overall status at discharge: patient is progressing back to baseline Time Spent with Patient Time attestation: Total time spent providing and/or coordinating discharge services: Time spent: Less than 30 minutes Exam Const: General: comfortable and no acute distress Limitations: no limitations Resp: Effort & Inspection: normal respiratory effort Auscultation: clear to auscultation bilaterally Cardio: Rate: regular rate Rhythm: regular rhythm GI: Inspection: non-distended GI Palp: Yes Soft to palpation, Yes Tenderness to palpation present (GI) (milder tenderness to deep palpation) and No Guarding due to palpation present (GI) Auscultation: normal bowel sounds Other: incisions C/D/I covered with dermabond Urinary Catheter: Urinary Catheter: urine clear Skin: General skin exam: normal color Extrem: General: normal to inspection Psych: Mental Status: mental status grossly normal Affect: normal affect DS: Data Data Completed and Pending Pending studies at discharge: Pending at discharge 03/10/25 08:44 Surgical [PTH] Routine Labs on day of discharge: Labs from last 24 hours 03/11/25 04:45 WBC 14.4 H RBC 3.51 L Hgb 9.2 L Hct 29.4 L MCV 83.8 MCH 26.2 MCHC 31.3 L RDW 12.3 Plt Count 209 MPV 10.5 H Immature Gran % (Auto) 0.7 H Neut % (Auto) 87.4 H Lymph % (Auto) 6.5 L [place] % (Auto) 5.3 Eos % (Auto) 0.0 Baso % (Auto) 0.1 L Lymph # (Auto) 0.93 [place] # (Auto) 0.8 H Eos # (Auto) 0.0 Baso # (Auto) 0.0 Abs Immat Gran (auto) 0.10 H Absolute Neuts (auto) 12.6 H Absolute Nucleated RBC 0.000 Nucleated RBC % 0.0 Discharge Plan Discharge Patient Disposition: Home Patient Instructions: Laparoscopic Hysterectomy (DC) Patient Language: Yoruba Stand Alone Forms: General Discharge Instructions Follow-up/Referrals: Galen Garcia MD [Physician, WALL TO WALL CARPET INSTALLER] - 2 Weeks Discharge Medications: New oxycodone-acetaminophen 5-325 mg tablet 1 tablet PO Q6H PRN (Reason: pain) Qty: 28 0RF ibuprofen 600 mg tablet 600 mg PO Q6H PRN (Reason: pain) Qty: 30 0RF sennosides-docusate sodium [Senna with Docusate Sodium] 8.6-50 mg tablet 1 tab-cap PO HS Qty: 30 0RF ondansetron 4 mg tablet,disintegrating 4 mg PO Q6H Qty: 30 0RF Continued Ocrevus Zunovo 920 mg-23,000 unit/23 mL solution 23 ml subcut [id number] Rx Instructions: into the abdomen over approximately 10 minutes Mirena 21 mcg/24hr (up to 8 yrs) 52 mg intrauterine device 1 device intrauterine ONCE Rx Instructions: as a single dose amitriptyline 25 mg tablet 25 mg PO DAILY PRN (Reason: nerve pain) Patient Comments: patient only takes 2-3 times a month maybe alprazolam [Xanax] 0.25 mg tablet 0.25 mg PO DAILY PRN (Reason: anxiety) Qty: 10 0RF Rx Instructions: Take 15-30 minutes prior to your flight taking off. ferrous sulfate 325 mg (65 mg iron) tablet 325 mg PO DAILY Qty: 90 3RF
[2025-03-11] MEDS: DOCUSATE SODIUM 100 MG CAPSULE PO (08:15)
[2025-03-11] MEDS: FERROUS SULFATE 325 MG TABLET DR BY MOUTH (08:15)
[2025-03-11] MEDS: SIMETHICONE 125 MG PO (08:15)
[2025-03-11 09:00] VITALS: BP 120/90; PULSE 87; RESP 18; TEMP 37.2; O2SAT 100
== END 2025-03-11 09:30 | disposition home or self-care (01) ==
LOC: ANHSURGERY 08:42 → ANHOB2 11:29
PROVIDERS: PCP Clinical Nurse Specialist; Visit Provider Student in an Organized Health Care Education/Training Program
PROC: (CPT 58571; principal; 2025-03-10 07:30)
DX: N72 Inflammatory disease of cervix uteri (principal); N87.9 Dysplasia of cervix uteri, unspecified; N80.03 Adenomyosis of the uterus; R10.2 Pelvic and perineal pain; R11.0 Nausea
CPT/HCPCS: 58571; S2900; 36415; 85025; 88307; 99199; J0690; A9270; J1100; J1171; J1885; J2003; J2004; J2250; J2405; J2550; J2704; J3010; J7030; J7040

== ENCOUNTER 2025-04-01 13:21 | Emergency (ER) | payer OTHER, SELFPAY ==
--- NOTE | ~2025-04-01 | US_ITS ---
EXAMINATION: US pelvic complete INDICATION: Abnormal bleeding post hysterectomy Comparison:Ultrasound dated 10/17/2024 TECHNIQUE: Multiple transabdominal sonographic images of the pelvis performed. FINDINGS: The uterus is surgically absent. The right ovary measures 1.3 x 1.2 x 1.7 cm and the left ovary measures 1.6 x 1.4 x 1.2 cm. There are small follicles in each ovary. Normal doppler signal in both ovaries. There is no free fluid in the pelvis. There are no abnormal masses seen on either side. IMPRESSION: 1. Unremarkable pelvic ultrasound post hysterectomy. Reviewed, dictated and finalized at location O.
--- NOTE | ~2025-04-01 | CT_ITS ---
Kendra Moi Sangeetha EXAMINATION: CT abdomen pelvis w con COMPARISON: None HISTORY: abdominal pain TECHNIQUE: Axial images were obtained through the abdomen, pelvis post administration of IV contrast. Oral contrast was also administered. Coronal reconstruction images were obtained from the axial views. CT scan performed using dose optimization techniques including the following automated exposure control; adjustment of mA and/or kV; use of iterative reconstruction technique. Automatic exposure control was used to reduce radiation dose. Permanent radiation dose record is archived to PACS. FINDINGS: CT abdomen: LUNG BASES: The lung bases are clear. The visualized portions of the heart and pericardium are unremarkable. LIVER: Mild hepatic steatosis. Portal vein patent. No intrahepatic biliary duct dilatation. SPLEEN: Unremarkable. KIDNEYS: Right Kidney: Unremarkable. No calculi. No hydronephrosis. Left Kidney: Unremarkable. No calculi. No hydronephrosis ADRENAL GLANDS: Unremarkable. PANCREAS: Unremarkable. GALLBLADDER/BILIARY: Unremarkable. No biliary dilatation. STOMACH AND ESOPHAGUS: Visualized stomach and esophagus within normal limits. BOWEL/MESENTERY: Appendix normal. No colitis or diverticulitis. ADENOPATHY/RETROPERITONEUM: No lymphadenopathy. AORTA/VASCULATURE: Normal caliber aorta. FREE FLUID OR FREE AIR: None. CT pelvis: SOLID ORGANS/REPRODUCTIVE: Post hysterectomy. No adnexal mass. BLADDER: Within normal limits. OSSEOUS STRUCTURES: No acute osseous abnormality.No suspicious lesions. OVERLYING SOFT TISSUES: Unremarkable. IMPRESSION: 1. No etiology identified to explain the patient's symptoms. Follow-up suggested if symptoms persist. Reviewed, dictated and finalized at location A. IMPRESSION: 1. No etiology identified to explain the patient's symptoms. Follow-up suggeste d if symptoms persist.
--- OUTSIDE RECORDS SUMMARY | 2025-04-01 13:30 | XMS_ITS | Clinical Summary ---
Author Organization [facility] Address [address] [place] [address] Care Team Providers Care Run Boat Operator Name Role Phone Clare Carroll Primary Care Pr putnamer Allergies Active Allergy Reactions Criticality Noted Date Comments [place] Itching Medium 11/09/2018 Lactated Ringers Shortness of [...] 30 tablet 11 5 09/17/19 26 Active Additional Information Patient taking differently:25 mg oralAs needed, Reported on 03/27/2025 fluticasone propionate (FLONASE) 50 mcg/actuation nasal spray [...] Encounters Date Type Department Care Team Description 03/30/2025 Documentation [facility] Medicine Multiple Sclerosis [address] [facility] [address] [place] [address] Pablo Cardenas MD PhD 03/27/2025 1:00 PM CDT Office Visit [facility] Medicine Allergy and Immunology [address] [place] [address] [place] [phone] Sammy Wong MD PhD Food allergy (Primary Dx); Chronic rhinitis; 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 03/26/2025 Telephone [facility] Medicine Allergy and Immunology [address] [place] [address] [place] [phone] Sammy Wong MD PhD 03/26/2025 Telephone [facility] Allergy and Immunology [address] [place] [address] [place] [phone] Renetta Howe RN 03/26/2025 Telephone [facility] Medicine Multiple Sclerosis [address] [facility] [address] [place] [address] Nataly Bragg RMA 03/17/2025 Telephone [facility] Multiple Sclerosis [address] [phone] Pablo Cardenas MD PhD 02/24/2025 Telephone [facility] Multiple Sclerosis [address] [address] Pablo Cardenas MD PhD 02/24/2025 Telephone [facility] Multiple Sclerosis [address] [phone] Pablo Cardenas MD PhD 02/17/2025 Letter (Out) [facility] Multiple Sclerosis [address] [phone] 02/13/2025 Documentation [facility] Multiple Sclerosis [address] [phone] Pablo Cardenas MD PhD 02/10/2025 Telephone [facility] Allergy and Immunology [address] [facility] [address] [place] [address] Apolonia Shepherd RN from Last 3 Months Immunizations Immunization Administration Dates Next Due Influenza, Quadrivalent, Spl it, Preservative Free, Intramuscular 05/26/2021,06/08/2020,07/26/2018 Rho (D) Immune Globulin 12/19/2018,10/17/2018 Tdap 11/01/2018 Surgical History Surgery Date Site/Laterality Comments HIP SURGERY Medical History Medical History Date Comments Abnormal heart rate Poor circulation Multiple sclerosis Peptic ulceration Kidney stone Anemia Depression Migraines [...] on file Legal Sex Female 11:06 AM AIR CONDITIONER INSTALLER HELPER Gender Identity Not on file Sexual Orientation Not on file Obstetrics History Last Filed Vital Signs Vital Sign Reading Time Taken Comments Blood Pressure 104/71 03/27/2025 12:55 PM CDT Pulse 68 03/27/2025 12:55 PM CDT Temperature 36.7 C (98.1 F) 03/27/2025 12:55 PM CDT Respiratory Rate 20 12/18/2024 4:32 PM CDT Oxygen Saturation 100% 03/27/2025 12:55 PM CDT Inhaled Oxygen Concentration - - Weight 64.4 kg (142 lb) 03/27/2025 12:55 PM CDT Height 170.2 cm (5' 7) 03/27/2025 12:55 PM CDT Body Mass Index 22.24 03/27/2025 12:55 PM CDT Plan of Treatment Health Maintenance Due Date Last Done Comments Depression Screening 1994 Varicella Vaccines (1 of 2 - 13+ 2-dose series) 2007 Regular Well Visit/Exam 18-64 2012 Pneumococcal vaccine <65 (1 of 2 - PCV) 2013 Zoster Vaccine (1 of 2) 2013 Covid-19 Vaccine (2 - Pfizer risk series) 06/16/2021 05/26/2021 HPV Vaccines (1 - 3-dose SCD M series) 2021 Influenza Vaccine (#1) 2025 , 05/30/2022, 05/26/2021, Additional history exists DTaP/Tdap/Td Vaccine (2 - Td or Tdap) 11/01/2028 11/01/2018 Hepatitis B Screening Completed 08/16/2021 Hepatitis C Screening Completed 08/16/2021 Procedures Procedure Name Priority Date/Time Associated Diagnosis Comments SCAN - LABS 03/27/2025 IMMUNOGLOBULINS A/E/G/M, SERUM Routine 02/09/2025 11:20 AM [...] HEPATITIS C ANTIBODY Routine 08/16/2021 1:44 PM AIR CONDITIONER INSTALLER HELPER Multiple sclerosis (HCC) from Last 3 Months or Most Recently Relevant to Health Maintenance Results * SCAN - LABS (03/27/2025) Provider Scanning Edited Result - Final * (ABNORMAL) Immunoglobulins A/E/G/M, Serum (02/09/2025 11:20 AM CDT) Pathologist [facility] Immunoglobulin A 143 47 - 310 mg/dL [facility] Immunoglobulin E 5 <QY=971 kU/L [facility] Immunoglobulin G 1,300 600 - 1,640 mg/dL [facility] Immunoglobulin M 48(L) 50 - 300 mg/dL [facility] Blood 02/09/2025 11:2 0 AM CDT 02/09/2025 11:21 AM CDT Narrative [facility] - 02/11/2025 4:04 PM CDT FASTING:NO FASTING: NO Pablo Cardenas MD PhD LAB BLOOD ORDERABLES F inal Result [facility] [address] [place] [address] * (ABNORMAL) Lymphocyte subset panel 1 (02/09/2025 11:20 AM CDT) Pathologist [facility] % CD3 91(H) 57 - 85 % [...] - 1,170 cells/uL [facility] [place]/Suppres sor ratio 2.28 0.86 - 5.00 [facility] % CD16+CD56 8 4 - 25 % [facility] Absolute NK cells (CD16+CD56+SWATHI LS) 112 70 - 760 cells/uL [facility] CD19 pct 6 - 29 % [facility] Comment:Less than 1 Absolute CD19+ CELLS <20(L) 110 - 660 cells/uL [facility] Lymphocytes, abs 1,510 850 - 3,900 cells/uL [facility] Blood 02/09/2025 11:2 0 AM CDT 02/09/2025 11:21 AM CDT Narrative [facility] - 02/11/2025 4:04 PM CDT FASTING:NO FASTING: NO us Pablo Cardenas MD PhD LAB BLOOD ORDERABLES F inal Result [facility] [address] [place] [address] * (ABNORMAL) CBC with auto differential (02/09/2025 11:20 AM CDT) Pathologist [facility] WBC 5.8 3.8 - 10.8 Thousand/u L [facility] RBC, POC 3.82 3.80 - 5.10 Million/uL [...] 12.5 11.0 - 15.0 % [facility] Platelets 262 140 - 400 Thousand/u L [facility] MPV 10.4 7.5 - 12.5 fL [facility] Neutrophils, abs 3,874 1,500 - 7,800 cells/uL [facility] Lymphocytes, abs 1,514 850 - 3,900 cells/uL [facility] Monocyte abs 354 200 - 950 cells/uL [facility] Eosinophils, abs 29 15 - 500 cells/uL [facility] Basophils, abs 29 0 - 200 cells/uL [facility] Neutrophils 66.8 % [facility] Lymphocyte pct 26.1 % [facility] Monocytes 6.1 % [facility] Eosinophils 0.5 % [facility] Basophils 0.5 % [facility] Blood 02/09/2025 11:2 0 AM CDT 02/09/2025 11:21 AM CDT Narrative [facility] - 02/11/2025 4:04 PM CDT FASTING:NO FASTING: NO us Pablo Cardenas MD PhD LAB BLOOD ORDERABLES F inal Result [facility] [address] [place] [address] * (ABNORMAL) Comprehensive metabolic panel (02/09/2025 11:20 AM CDT) [facility] Glucose 95 65 - 139 mg/dL [facility] Comment: Non-fasting reference interval BUN 6(L) 7 - 25 mg/dL [facility] Creatinine 0.46(L) 0.50 - 0.97 mg/dL [facility] eGFR 132 > OR = 60 mL/min/1.7 3m2 [facility] BUN/creat ratio 13 6 - 22 (calc) [facility] Sodium 140 135 - 146 mmol/L [facility] Potassium, pl 3.9 3.5 - 5.3 mmol/L [facility] Chloride 106 98 - 110 mmol/L [facility] CO2 26 20 - 32 mmol/L [facility] Calcium 9.0 8.6 - 10.2 mg/dL [facility] Protein, sr 7.2 6.1 - 8.1 g/dL [facility] Albumin 4.5 3.6 - 5.1 g/dL [facility] GLOBULIN 2.7 1.9 - 3.7 g/dL (calc) [facility] Alb/glob ratio 1.7 1.0 - 2.5 (calc) [facility] Bilirubin, total 0.5 0.2 - 1.2 mg/dL [facility] Alk phos 82 31 - 125 U/L [facility] AST 20 10 - 30 U/L [facility] ALT (SGPT) 10 6 - 29 U/L [facility] Blood 02/09/2025 11:2 0 AM CDT 02/09/2025 11:21 AM CDT Narrative [facility] - 02/11/2025 4:04 PM CDT FASTING:NO FASTING: NO Pablo Cardenas MD PhD LAB BLOOD ORDERABLES F inal Result Performing Organization Address City/[facility]/ZIP Co de Phone Number [facility] [address] [place] [address] * Hepatitis C antibody (08/16/2021 1:44 PM AIR CONDITIONER INSTALLER HELPER) Pathologist [facility] Hep C Ab Nonreactive Nonreactive [facility] Comment:Antibodies to HCV no t detected. Does NOT exclude the possibility of recent exposure to HCV. Blood 08/16/2021 1:44 PM AIR CONDITIONER INSTALLER HELPER 08/16/2021 6:03 PM AIR CONDITIONER INSTALLER HELPER Pablo Cardenas MD PhD LAB MICROBIOLOGY - GEN ERAL ORDERABLES Edited Result - Final [facility] Department [place] [address] from Last 3 Months or Most Recently Relevant to Health Maintenance Insurance [facility] PL[facility] PL[facility] PLUS Care Teams Run Boat Operator Relationship Specialty Start Date End Date Clare Carroll PA PCP - General Physician Frog Catcher 12/09/21
--- OUTSIDE RECORDS SUMMARY | 2025-04-01 13:30 | XMS_ITS | Encounter Summary ---
Author Organization [facility] Address [address] [place] [address] Phone Care Team Providers Care Branch Director Name Role Phone Clare Carroll Primary Care Pr ovider Encounter Details Date Type Department Care Team (Late st Contact Info) Description 03/30/2025 Documentation [facility] Multiple Sclerosis [address] [facility] 7[address] [place] [address] Pablo Cardenas MD PhD [address] [facility] [id number] [place], [place] [phone] Social History Tobacco Use Types Packs/Day Years Used Date Smoking Tobacco: Never AUDIT-C Answer Date Recorded Q1: How often [...] on file 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
--- OUTSIDE RECORDS SUMMARY | 2025-04-01 13:30 | XMS_ITS | Clinical Summary ---
Author Organization [facility] Address [address] [place] [address] Phone Care Team Providers Care Home Care Chaplain Name Role Phone Clare Carroll Primary Care Provider Allergies Active Allergy Reactions Criticality Noted Date Comments Lactated Ringers Anaphylaxis High 11/29/2021 Active Problems Problem Noted Date Diagnosed Date Multiple sclerosis Social History Tobacco Use Types Packs/Day Years Used Date Smoking Tobacco: Never Assessed Comments Unknown Sex and Gender Information Value Date Recorded Sex Assigned at Not on file Legal Sex Female 1:34 PM RN CLINICAL TRIALS Gender Identity Not on file Sexual Orientation Not on file Last Filed Vital Signs Vital Sign Reading Time Taken Comments Blood Pressure 96/69 08/14/2024 12:20 PM RN CLINICAL TRIALS Pulse 63 08/14/2024 12:20 PM RN CLINICAL TRIALS Temperature 36.4 C (97.6 F) 08/14/2024 12:20 PM RN CLINICAL TRIALS Respiratory Rate 20 08/14/2024 12:20 PM RN CLINICAL TRIALS Oxygen Saturation 100% 08/14/2024 12:20 PM RN CLINICAL TRIALS Inhaled Oxygen Concentration - - Weight 68 kg (150 lb) 08/13/2023 8:45 AM RN CLINICAL TRIALS Height - - Body Mass Index - - Plan of Treatment Upcoming Encounters Date Type Department Care Team (Latest Contact Info) Description 09/03/2025 9:00 AM RN CLINICAL TRIALS Clinical Support [facility] Oncology Services [address] [place] [address] Pablo Cardenas MD PhD [address] [place] [address] Discharge Disposition: Discharged to home or Selfcare Health Maintenance Due Date Last Done Comments Hepatitis C Virus (HCV) Screening 1994 Hepatitis B Immunization (1 of 3 - 19+ 3-dose series) 2013 Pap Smear 2015 Human Papillomavirus (HPV) Immunization (1 - 3-dose SCDM series) 2021 Cervical Cancer Screening (CCS) 2024 HPV/Cotest 2024 Influenza Immunization (#1) 03/09/202506/08, 05/30/2022, 05/26/2021, Additional history exists SARS-COV-2 Immunization ( season) 2025 06/23/2023, 05/30/2022, 05/26/2021 Respiratory Syncytial Virus (RSV) Immunization (Adult) (1 [...] patient's age to complete this topic Insurance [facility] INFUSION DRUG ASSISTANCE Care Teams Home Care Chaplain Relationship Specialty Start Date End Date Clare Carroll PA PCP - General Family Medicine 11/29/21
--- OUTSIDE RECORDS SUMMARY | 2025-04-01 13:30 | XMS_ITS | Clinical Summary ---
Author Organization [facility] Address [address] [facility] [place] [address] Care Team Providers Care Doctor Chiropractic Name Role Phone Meaghan Mcgowan CONCRETE PRODUCTS MACHINE OPERATOR-[facility] [place] Primary Care Provider [phone] Source Comments [facility],non-owned Affiliates and Associated Physician Practices is amultiple site organization consisting of ambulatory clinics and hospital sitesin [place], [place], [place] and [place]. This disclosure is being madepursuant to the Care Everywhere program and may not contain all information available regarding this patient. 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 Gender Identity Not on file Sexual Orientation Not on file Plan of Treatment Health Maintenance Due Date Last Done Comments HIV SCREENING 2009 HEPATITIS C SCREENING 08/30/2012 DTAP/TDAP/TD VACCINES (1 - Tdap) 2013 HEPATITIS B VACCINE (1 of 3 - 19+ 3-dose series) 2013 PAP SMEAR 2015 HPV VACCINE (1 - 3-dose SCDM series) 2021 COVID-19 VACCINE (1 - 2023-2 5 season) 2025 INFLUENZA VACCINE (#1) 2025 , 06/08/2020, 07/26/2018 [...] patient's age to complete this topic Insurance [facility] SELF PAY NO INSURANCE Member Subscriber Plan / Payer (Ef fective for All Dates) Name:Kendra Vivas Member ID:Not on file Relation to Subscriber:Not on file Name:DENNISMARCO ANTONIOKENDRA Subscriber ID:Not on file (Home) Address: [address] [place] [phone] Payer ID:Not on file Group ID:Not on file Type:Self Pay Address: [place], [place] Care Teams Doctor Chiropractic Relationship Specialty Start Date End Date Meaghan Mcgowan APRN-CNS [address] [place] [id number] PCP - General Certified Clinical Nurse Specialist 06/02/24
[2025-04-01 13:36] VITALS: TEMP 37.3
--- OUTSIDE RECORDS SUMMARY | 2025-04-01 13:59 | XMS_ITS | Clinical Summary ---
Author Organization [facility] Address [address] [place] [address] Care Team Providers Care Sandblaster Paint Sprayer Name Role Phone Clare Carroll Primary Care Pr tolucaer Allergies Active Allergy Reactions Criticality Noted Date Comments Superior Itching Medium 11/09/2018 Lactated Ringers Shortness of [...] Type Department Care Team Description 03/30/2025 Documentation [facility] Medicine Multiple Sclerosis [address] 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 7th [place] [address] Nataly Bragg RMA 03/17/2025 Telephone [facility] Multiple Sclerosis [address] [phone] Pablo Cardenas MD PhD 02/24/2025 Telephone [facility] Multiple Sclerosis [address] [phone] Pablo Cardenas MD PhD 02/24/2025 Telephone [facility] Multiple Sclerosis [address] [address] Pablo Cardenas MD PhD 02/17/2025 Letter (Out) [facility] Multiple Sclerosis [address] [phone] 02/13/2025 Documentation [facility] Multiple Sclerosis [address] [phone] Pablo Cardenas MD PhD 02/10/2025 Telephone [facility] Allergy and Immunology [address] 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 Gender Identity Not on file Sexual Orientation [...] HEPATITIS C ANTIBODY Routine 08/16/2021 1:44 PM MUNICIPAL SERVICES MANAGER Multiple sclerosis (HCC) from Last 3 Months or Most Recently Relevant to Health Maintenance Results * SCAN - LABS (03/27/2025) Provider Scanning Edited Result - Final * (ABNORMAL) Immunoglobulins A/E/G/M, Serum (02/09/2025 11:20 AM CDT) Pathologist [facility] Immunoglobulin A 143 47 - 310 mg/dL [facility] Immunoglobulin E 5 <XM=690 kU/L [facility] Immunoglobulin G 1,300 600 - 1,640 mg/dL [facility] Immunoglobulin M 48(L) 50 - 300 mg/dL [facility] Blood 02/09/2025 11:2 0 AM CDT 02/09/2025 11:21 AM CDT Narrative [facility] - 02/11/2025 4:04 PM CDT FASTING:NO FASTING: NO Pablo Cardenas MD PhD LAB BLOOD ORDERABLES F inal Result [facility] [address] [facility] [place] [address] * (ABNORMAL) Lymphocyte subset panel 1 (02/09/2025 11:20 AM CDT) Pathologist [facility] % CD3 91(H) 57 - 85 % [...] - 1,170 cells/uL [facility] Entriken/Suppres sor ratio 2.28 0.86 - 5.00 [facility] % CD16+CD56 8 4 - 25 % [facility] Absolute NK cells (CD16+CD56+SWATHI LS) 112 70 - 760 cells/uL [facility] CD19 pct 6 - 29 % [facility] Comment:Less than 1 Absolute CD19+ CELLS <20(L) 110 - 660 cells/uL [facility] Lymphocytes, abs 1,510 850 - 3,900 cells/uL [facility] Blood 02/09/2025 11:2 0 AM CDT 02/09/2025 11:21 AM CDT Narrative [facility] - 02/11/2025 4:04 PM CDT FASTING:NO FASTING: NO us Pablo Cardenas MD PhD LAB BLOOD ORDERABLES F inal Result [facility] [address] [place] [address] * (ABNORMAL) CBC with auto differential (02/09/2025 11:20 AM CDT) Pathologist [facility] WBC 5.8 3.8 - 10.8 Thousand/u L [...] BLOOD ORDERABLES F inal Result KEIL[facility] [address] [place] [address] * (ABNORMAL) Comprehensive metabolic panel (02/09/2025 11:20 AM CDT) [facility] Glucose 95 65 - 139 mg/dL [facility] Comment: Non-fasting reference interval BUN 6(L) 7 - 25 mg/dL [facility] Alexi Creatinine 0.46(L) 0.50 - 0.97 mg/dL [facility] eGFR 132 > OR = 60 mL/min/1.7 3m2 [facility] BUN/creat ratio 13 6 - 22 (calc) [facility] Sodium 140 135 - 146 mmol/L [facility] Potassium, pl 3.9 3.5 - 5.3 mmol/L [facility] Chloride 106 98 - 110 mmol/L [facility] CO2 26 20 - 32 mmol/L [facility] Calcium 9.0 8.6 - 10.2 mg/dL [facility] Protein, sr 7.2 6.1 - 8.1 g/dL [facility] Albumin 4.5 3.6 - 5.1 g/dL [facility] GLOBULIN 2.7 1.9 - 3.7 g/dL (calc) [facility] Alb/glob ratio 1.7 1.0 - 2.5 (calc) [facility] Bilirubin, total 0.5 0.2 - 1.2 mg/dL [facility] Alk phos 82 31 - 125 U/L [facility] AST 20 10 - 30 U/L [facility] ALT (SGPT) 10 6 - 29 U/L [facility] Blood 02/09/2025 11:2 0 AM CDT 02/09/2025 11:21 AM CDT Narrative [facility] - 02/11/2025 4:04 PM CDT FASTING:NO FASTING: NO Pablo Cardenas MD PhD LAB BLOOD ORDERABLES F inal Result Performing Organization Address City/[facility]/ZIP Co de Phone Number [facility] [address] [place] [address] * Hepatitis C antibody (08/16/2021 1:44 PM MUNICIPAL SERVICES MANAGER) Pathologist [facility] Hep C Ab Nonreactive Nonreactive [facility] Comment:Antibodies to HCV no t detected. Does NOT exclude the possibility of recent exposure to HCV. Blood 08/16/2021 1:44 PM MUNICIPAL SERVICES MANAGER 08/16/2021 6:03 PM MUNICIPAL SERVICES MANAGER Pablo Cardenas MD PhD LAB MICROBIOLOGY - GEN ERAL ORDERABLES Edited Result - Final [facility] [address] [address] from Last 3 Months or Most Recently Relevant to Health Maintenance Insurance [facility] CHOICE PLUS [facility]/PPO Address: [place] [address] [facility] PLUS [facility]/PPO Address: [place] [address] [facility] CHOICE PLUS [facility] HMO/PPO Address: [place] [address] Care Teams Sandblaster Paint Sprayer Relationship Specialty Start Date End Date Clare Carroll PA PCP - General Physician Order Picker 12/09/21
--- OUTSIDE RECORDS SUMMARY | 2025-04-01 13:59 | XMS_ITS | Clinical Summary ---
Author Organization [facility] Address [address] [place] [address] Care Team Providers Care Cognos Administrator Name Role Phone Meaghan Mcgowan INVESTIGATIONS DIRECTOR-[facility] Primary Care Provider [phone] Source Comments [facility],non-owned Affiliates and Associated Physician Practices is amultiple site organization consisting of ambulatory clinics and hospital sitesin [place], [place], [place] and [place]. This disclosure is being madepursuant to the Care Everywhere program and may not contain all information available regarding this patient. 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 ASSISTANT Gender Identity Not on file Sexual Orientation [...] patient's age to complete this topic Insurance [facility] CARE SELF PAY NO INSURANCE Member Subscriber Plan / Payer (Ef fective for All Dates) Name:Kendra Vivas Member ID:Not on file Relation to Subscriber:Not on file Name:DENNISMARCO ANTONIOKENDRA Subscriber ID:Not on file (Home) Address: [address] [place] [id number] Payer ID:Not on file Group ID:Not on file Type:Self Pay Address: [place], [place] [facility] Address: [facility] [address] [place] [address] Care Teams Cognos Administrator Relationship Specialty Start Date End Date Meaghan Mcgowan APRN-CNS [address] [place] [id number] PCP - General Certified Clinical Nurse Specialist 06/02/24
--- OUTSIDE RECORDS SUMMARY | 2025-04-01 13:59 | XMS_ITS | Clinical Summary ---
Author Organization [facility] Address [address] [place] [address] Phone Care Team Providers Care Print Binding And Finishing Worker Name Role Phone Clare Carroll Primary Care Provider Allergies Active Allergy Reactions Criticality Noted Date Comments Lactated Ringers Anaphylaxis High 11/29/2021 Active Problems Problem Noted Date Diagnosed Date Multiple sclerosis Social History Tobacco Use Types Packs/Day Years Used Date Smoking Tobacco: Never Assessed Comments Unknown Sex and Gender Information Value Date Recorded Sex Assigned at Not on file Legal Sex Female 1:34 PM FUN HOUSE ATTENDANT Gender Identity Not on file Sexual Orientation Not on file Last Filed Vital Signs Vital Sign Reading Time Taken Comments Blood Pressure 96/69 08/14/2024 12:20 PM FUN HOUSE ATTENDANT Pulse 63 08/14/2024 12:20 PM FUN HOUSE ATTENDANT Temperature 36.4 C (97.6 F) 08/14/2024 12:20 PM FUN HOUSE ATTENDANT Respiratory Rate 20 08/14/2024 12:20 PM FUN HOUSE ATTENDANT Oxygen Saturation 100% 08/14/2024 12:20 PM FUN HOUSE ATTENDANT Inhaled Oxygen Concentration - - Weight 68 kg (150 lb) 08/13/2023 8:45 AM FUN HOUSE ATTENDANT Height - - Body Mass Index - - Plan of Treatment Upcoming Encounters Date Type Department Care Team (Latest Contact Info) Description 09/03/2025 9:00 AM FUN HOUSE ATTENDANT Clinical Support [facility] Oncology Services [address] [place] [address] Pablo Cardenas MD PhD [address] [place] [address] Discharge Disposition: Discharged to home or Selfcare [...] patient's age to complete this topic Insurance [facility] INFUSION DRUG ASSISTANCE Care Teams Print Binding And Finishing Worker Relationship Specialty Start Date End Date Clare Carroll PA PCP - General Family Medicine 11/29/21
--- OUTSIDE RECORDS SUMMARY | 2025-04-01 13:59 | XMS_ITS | Encounter Summary ---
Author Organization [facility] Address [address] [place] [address] Phone Care Team Providers Care Pole Peeling Machine Operator Helper Name Role Phone Clare Carroll Primary Care Pr ovider Encounter Details Date Type Department Care Team (Late st Contact Info) Description 03/30/2025 Documentation [facility] [address] [facility] 7th [place] [address] Pablo Cardenas MD PhD [address] [facility] [id number] [place], [place] [id number] Social History Tobacco Use Types Packs/Day Years [...] on file Legal Sex Female 11:06 AM ELECTRICIAN FRONT Gender Identity Not on file Sexual Orientation Not on file documented as of this encounter Plan of Treatment Not on file documented as of this encounter Visit Diagnoses Not on filedocumented in this encounter Care Teams Pole Peeling Machine Operator Helper Relationship Specialty Start Date End Date Clare Carroll PA PCP - General Physician Bioinformatics Associate 12/09/21 documented as of this encounter
--- NOTE | 2025-04-01 14:15 | ED_ITS ---
HPI - General Adult General Chief complaint: Recheck/Abnormal Lab/Rx Stated complaint: post op comp Time Seen by Provider: 04/01/25 13:48 History of Present Illness HPI narrative: Kendra Vivas is a 29 y/o female who presents today [facility] reports of having a hysterectomy done on March 10 and the surgery things have been going well at home today she said that she started to have some vaginal bleeding it nothing too heavy she changed 1 pad and she has some lower pelvic pain rated about a 4/10. She called her OBGYN and they said she was having some pain and some nausea she should go to the emergency room for further evaluation. Related Data Home Medications ?Medication ?Instructions ?Recorded ?Confirmed ?Last Taken ?Type amitriptyline 25 mg tablet 25 mg PO DAILY PRN nerve pa in 04/03/24 03/10/25 02/24/25 History ocrelizumab 920 23 ml subcut [id number] 03/10/25 03/03/25 History [id number]-[id number]-atps 23,000 unit/23 mL subcut soln (Ocrevus Zunovo) Allergies Allergy/AdvReac Type Severity Reaction Status Date / Time mint Allergy Severe Difficulty Verified 04/01/25 13:40 Breathing pineapple Allergy Severe Swelling Verified 04/01/25 13:40 of Lip/Tongue/Throat Ringer's solution,lactated Allergy Severe Difficulty Verified 04/01/25 13:40 Breathing cucumber Allergy Swelling Verified 04/01/25 13:40 of Lip/Tongue/Throat anesthesia Allergy Severe malignant Uncoded 03/25/25 13:44 hyperthermia Review of Systems 2 Review of Systems: All systems reviewed & are unremarkable except as noted in HPI and below PMFSH Past Medical History Medical History Migraine Endometriosis ADHD Multiple sclerosis Surgical History Surgical History H/O: hysterectomy H/O gynecological procedure History of hip surgery laparoscopy with destruction of endometriosis Family History Family History Mother Asthma Sibling Asthma Other Hypertension Social History Social History Smoking status: Never smoker Second hand tobacco smoke exposure: No Alcohol intake: current Drinks per week: 1 Alcohol use details: socially 1-2 drinks per month Substance use: never Substance use type: does not use Other substance usage details: Pt stated after surgery when she was 17 Last use: 10 years Do You Feel Safe in your Home?: Yes Lack of Transportation: No Lack of Food: Never True Current Housing: I Have Housing Concerned About Future Housing: No Difficulty Paying Gas/Electric Bills: No Difficulty Paying for Meds: No Currently Unemployed: No Education: Bachelor's Degree Difficulty w/ Childcare or Family Care: No Living arrangements: with family Occupation/Education: occupation 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 HEAD: Normocephalic, atraumatic. EYES: PERRLA and EOMI. ENT: Nares clear, no rhinorrhea or epistaxis. Mucous membranes moist. Oropharynx without tonsillar hypertrophy exudate or other lesions. NECK: Supple. No adenopathy or masses. No carotid bruits or JVD CHEST: Clear to auscultation. No respiratory distress. No wheezes rales or rhonchi HEART: Regular rate and rhythm. No murmur heard. Normal peripheral pulses. ABDOMEN: Soft,, nondistended, normal active bowel sounds, mild tenderness lower pelvic region with palpation. EXTREMITIES: Normal range of motion. No edema. SKIN: Warm, dry, no rash. NEURO: No focal deficits. Alert and oriented x3. PSYCH: Normal mood and affect. Course Vital Signs Vital signs: Vital Signs Temperature 37.3 C 04/01/25 13:36 Temperature 37.3 C 04/01/25 13:36 Pulse Rate 81 04/01/25 17:26 Respiratory Rate 16 04/01/25 17:26 Blood Pressure 108/62 04/01/25 17:26 Pulse Oximetry 100 04/01/25 17:26 Medical Decision Making MDM Narrative Medical decision making narrative: 29-year-old female who presents today with complaints of having vaginal bleeding and some lower pelvic pain after having a hysterectomy done about 12 noon 22 days ago. She states that the vaginal bleeding was very mild just mostly when she wiped. She called the environmental health safety manager office and they said that if she develops any pain or nausea to call them back she said 20 minutes later she developed some lower pelvic pain and nausea and she called back and told her to come to the emergency room She feels that she has been constipated since the surgery but she has had 2 bowel movements today Offered pain medication and she declines that the pain really is not bad like a 4/10, she knew she did not want anything for the nausea CBC- No leukocytosis, hemodynamically stable CMP: unremarkable UA- blood 2+ and Leukocyt 1+ blood from vaginal, no symptoms - Imaging : negative I consulted with her OBGYN doctor Radha, who confirms that it is fine to do a pelvic exam. He also states that some mild bleeding later after the after the hysterectomy consider those happen related to where the sutures are. I did do the pelvic exam very mild blood in the vaginal vault no active bleeding that I could tell. Patient states that she does feel better and reassured she has nausea medicine at home that she may continue to take if she needs she denies anything for pain. I let her know that I did speak to her OBGYN and she can follow up with him outpatient. She is comfortable with this plan denies anything further. Medical Records Medical records reviewed: Yes I reviewed the external patient's medical records. Vital Signs Vital Signs: Vital Signs Temperature 37.3 C 04/01/25 13:36 Temperature 37.3 C 04/01/25 13:36 Pulse Rate 81 04/01/25 17:26 Respiratory Rate 16 04/01/25 17:26 Blood Pressure 108/62 04/01/25 17:26 Pulse Oximetry 100 04/01/25 17:26 Vitals reviewed by me Lab Data Lab results reviewed: Yes I reviewed the patient's lab results. 04/01/25 15:05 04/01/25 15:05 Labs: Lab Results 04/01/25 Range/Units 15:05 WBC 7.6 (4.5-10.0) K/mm3 RBC 4.24 (4.2-5.4) M/mm3 Hgb 11.1 L (12.0-15.0) g/dL Hct 34.6 L (37.0-47.0) % MCV 81.6 (80-100) fl MCH 26.2 (26-34) pg MCHC 32.1 (32-36) g/dl RDW 12.7 (11.5-14.5) % Plt Count 305 (150-375) k/mm3 MPV 9.7 (7.4-10.4) fl Immature Gran % (Auto) 0.4 (0-0.5) % Neut % (Auto) 62.3 (45.5-73.1) % Lymph % (Auto) 28.1 (18.3-44.2) % [place] % (Auto) 6.1 (2.6-8.5) % Eos % (Auto) 2.4 (0-4.4) % Baso % (Auto) 0.7 (0.2-1.2) % Lymph # (Auto) 2.13 (0.9-3.2) K/mm3 [place] # (Auto) 0.5 (0.1-0.6) K/mm3 Eos # (Auto) 0.2 (0-0.3) K/mm3 Baso # (Auto) 0.1 (0.0-0.1) K/mm3 Abs Immat Gran (auto) 0.03 (0.00-0.031) K/mm3 Absolute Neuts (auto) 4.7 (1.3-6.7) K/mm3 Absolute Nucleated RBC 0.000 (0.0-0.012) K/mm3 Nucleated RBC % 0.0 (0.0-0.2) % Sodium 140 (137-145) mmol/L Potassium 3.6 (3.4-5.0) mmol/L Chloride 105 (98-107) mmol/L Carbon Dioxide 24 (22-30) mmol/L Anion Gap 11 (4-12) mmol/L BUN 8 (7-17) mg/dL Creatinine 0.46 L (0.7-1.0) mg/dL Estim Creat Clear Calc 144 ml/min Estimated GFR > 60 (59 - ) Glucose 81 (65-110) mg/dL Calcium 8.9 (8.4-10.2) mg/dL Total Bilirubin 0.5 (0.2-1.3) mg/dL AST 31 (14-36) U/L ALT 15 (6-35) U/L Alkaline Phosphatase 87 (38-126) U/L Total Protein 8.4 H (6.3-8.2) g/dL Albumin 4.7 (3.5-5.1) g/dL Urine Color Yellow (Yellow) Urine Appearance Clear (Clear) Urine pH 6.0 (5.0-9.0) Ur Specific [place] 1.007 (1.001-1.035) Urine Protein Negative (Negative) mg/dL Urine Glucose (UA) Negative (Negative) mg/dL Urine Ketones Negative (Negative) mg/dL Ur Blood (Man) 2+ H (Negative) Urine Nitrate Negative (Negative) Urine Bilirubin Negative (Negative) Urine Urobilinogen 0.2 (<2.0) mg/dL Add Ur Microanalysis Reviewed Leukocyte Esterase Rfl 1+ H (Negative) KASIE/UL Urine RBC 0-2 (0-2) /hpf Urine WBC 0-5 (0-3) /hpf Ur Squamous Epith Cells None seen (Few) /hpf Urine Bacteria None seen /hpf Urine Casts 0-2 Imaging Data Radiologist's impression: Impressions Pelvis Ultrasound 04/01/25 15:04 IMPRESSION: 1. Unremarkable pelvic ultrasound post hysterectomy. Abdomen/Pelvis CT 04/01/25 15:53 IMPRESSION: 1. No etiology identified to explain the patient's symptoms. Follow-up suggested if symptoms persist. Discharge Plan Discharge Clinical Impression: Abnormal vaginal bleeding Patient Disposition: Home Condition: Stable Instructions: Antibiotic Form, Hysterectomy (DC) Additional Instructions: Continue follow up with your OBGYN Today your labs and imaging are reassuring. If you should develop any new or worsening symptoms as always return to the ER> Patient Language: Kyrgyz Prescriptions: No Action Ocrevus Zunovo 920 mg-23,000 unit/23 mL solution 23 ml subcut [id number] Rx Instructions: into the abdomen over approximately 10 minutes metoclopramide HCl [Reglan] 5 mg tablet 5 mg PO DAILY Qty: 30 1RF amitriptyline 25 mg tablet 25 mg PO DAILY PRN (Reason: nerve pain) Patient Comments: patient only takes 2-3 times a month maybe alprazolam [Xanax] 0.25 mg tablet 0.25 mg PO DAILY PRN (Reason: anxiety) Qty: 10 0RF Rx Instructions: Take 15-30 minutes prior to your flight taking off. Follow-up/Referrals: UNKNOWN,DOCTOR [Primary Care Provider] Time of Disposition: 17:03
[2025-04-01 15:14] LABS: Hematocrit 34.6 % (37.0-47.0); Hemoglobin 11.1 g/dL (12.0-15.0); Immature Granulocyte Percent A 0.4 % (0-0.5); Lymphocytes Absolute Auto 2.13 K/mm3 (0.9-3.2); Mean Corpuscular HGB Conc 32.1 g/dl (32-36); Mean Corpuscular Hemoglobin 26.2 pg (26-34); Mean Corpuscular Volume 81.6 fl (80-100); Nucleated Red Blood Cells Absolute Auto 0.000 K/mm3 (0.0-0.012); Nucleated Red Blood Cells Perc 0.0 % (0.0-0.2); Platelet Count Result 305 k/mm3 (150-375); Red Blood Count 4.24 M/mm3 (4.2-5.4); White Blood Count 7.6 K/mm3 (4.5-10.0)
[2025-04-01 15:20] VITALS: BP 106/70; PULSE 71; RESP 16; O2SAT 98
[2025-04-01 15:27] LABS: Add Urine Microscopic? YES; Appearance Urine Clear (Clear); Glucose Urine UA Negative (Negative); Leukocyte Esterase Ur 1+ LEU/UL (Negative); Need Manual Microscopic Reviewed; Nitrate Urine Negative (Negative); Non Pathogenic Casts 0-2; Specific Grav Ur 1.007 (1.001-1.035)
[2025-04-01 15:28] LABS: Alanine Aminotransferase 15 U/L (6-35); Albumin Level 4.7 g/dL (3.5-5.1); Alkaline Phosphatase 87 U/L (38-126); Anion Gap 11 mmol/L (4-12); Aspartate Amino Transferase 31 U/L (14-36); Bilirubin,Total 0.5 mg/dL (0.2-1.3); Blood Urea Nitrogen 8 mg/dL (7-17); Calcium 8.9 mg/dL (8.4-10.2); Carbon Dioxide 24 mmol/L (22-30); Chloride 105 mmol/L (98-107); Estimated CRCL calculation 144 ml/min; Estimated Glomerular Filt Rate > 60; Glucose 81 mg/dL (65-110); Potassium 3.6 mmol/L (3.4-5.0); Sodium 140 mmol/L (137-145); Total Protein 8.4 g/dL (6.3-8.2)
[2025-04-01] MEDS: ACETAMINOPHEN 500 MG TABLET 1000 MG PO (16:55)
[2025-04-01 17:26] VITALS: BP 108/62; PULSE 81; RESP 16; O2SAT 100
== END 2025-04-01 17:28 | disposition home or self-care (01) ==
PROVIDERS: Emergency Provider Nurse Practitioner Family
DX: N93.8 Other specified abnormal uterine and vaginal bleeding (principal); Z98.890 Other specified postprocedural states; Z90.710 Acquired absence of both cervix and uterus; G35 Multiple sclerosis
CPT/HCPCS: 36415; 74177; 76856; 80053; 81001; 85025; 87086; 99284; A9270; Q9967